=== PATIENT | female | born 1960 | race Caucasian/White ===

== ENCOUNTER 2022-12-20 13:46 | Inpatient (IN) | payer OTHER, SELFPAY ==
--- NOTE | ~2022-12-20 | XR_ITS ---
EXAM: XR foot RT min 3V DATE: 12/20/2022 18:51 HISTORY: foreign body . COMPARISON: None available. FINDINGS: Decreased mineralization. No fracture or dislocation. No lytic or blastic lesion. Degenera tive change in the midfoot and first MTP joint. Severe plantar enthesopathy. No erosion or periosteal change. Forefoot soft tissue swelling. Scattered vascular calcifications. IMPRESSION: No acute osseous finding. Forefoot soft tissue swelling. No radiopaque foreign body. Reviewed, dictated and finalized at location K. IMPRESSION: No acute osseous finding. Forefoot soft tissue swelling. No radiopa que foreign body.
[2022-12-20 14:16] VITALS: BP 105/52; PULSE 85; RESP 16; TEMP 37.5; O2SAT 95
--- NOTE | 2022-12-20 17:32 | ED.GENADULT ---
HPI - General Adult General Chief complaint: Wound/Laceration <Molly Evans PA-C - Last Filed: 12/20/22 20:04> Stated complaint: right foot wound <Molly Evans PA-C - Last Filed: 12/20/22 20:04> Time Seen by Provider: 12/20/22 17:07 <Molly Evans PA-C - Last Filed: 12/20/22 20:04> History of Present Illness HPI narrative: 62-year-old female with a history of diabetes reports for evaluation of erythema, swelling and pain to her right foot x1 day. Patient had pain, swelling and redness to her foot 5 days ago and went to [place] ED. She was found to have a foreign body on x-ray and was admitted for OR removal of foreign body by Dr. Hull ([facility]) 4 days ago and was discharged the same day with doxycycline. Patient states she did not start taking the doxycycline until 3 days ago and then yesterday began to develop redness, swelling and pain again to the right foot. She states she went to Dr. Hull's office today due to worsening symptoms and was told to come to the ED for IV antibiotics and admission. Patient states she did not go to [place] emergency department because she did not like the care there, therefore came to [place]. She states she has been taking her doxycycline twice a day since she filled it 3 days ago. Reports her blood sugars have been well controlled. She does report body aches and chills, but denies fever, nausea, vomiting, diarrhea, abdominal pain, chest pain or shortness of breath. <Molly Evans PA-C - Last Filed: 12/20/22 20:04> Related Data Home medications: Home Medications Medication Instructions Recorded Confirmed albuterol sulfate 90 mcg/actuation 2 puff inhalation Q4H PRN SOB 12/20/22 12/20/22 aerosol inhaler aspirin 81 mg tablet 81 mg PO DAILY 12/20/22 12/20/22 doxycycline hyclate 100 mg tablet 100 mg PO BID 12/20/22 12/20/22 gabapentin 600 mg tablet 600 mg PO TID 12/20/22 12/20/22 hydrochlorothiazide 25 mg tablet 25 mg PO DAILY 12/20/22 12/20/22 insulin glargine 100 unit/mL (3 25 unit subcut BIDWM 12/20/22 12/20/22 mL) subcutaneous pen (Lantus Solostar U-100 Insulin) insulin lispro 100 unit/mL 15 unit subcut TIDWM 12/20/22 12/20/22 subcutaneous pen (Humalog KwikPen (U-100) Insulin) [id number] 2 cap PO TIDWM 12/20/22 12/20/22 15,000-47,000-63,000 unit capsule,delayed rel (Zenpep) lisinopril 10 mg tablet 10 mg PO DAILY 12/20/22 12/20/22 metformin 500 mg tablet 500 mg PO BIDWM 12/20/22 12/20/22 naproxen 500 mg tablet 500 mg PO BID PRN Pain, Moderate 12/20/22 12/20/22 simvastatin 20 mg tablet 20 mg PO HS 12/20/22 12/20/22 tizanidine 4 mg tablet 4 mg PO TID PRN muscle spasms 12/20/22 12/20/22 <Molly Evans PA-C - Last Filed: 12/20/22 20:04> Allergies/adverse reactions: Allergies Allergy/AdvReac Type Severity Reaction Status Date / Time codeine Allergy Mild ITCHING Verified 12/20/22 21:39 Sulfa (Sulfonamide Allergy Mild ITCHING Verified 12/20/22 21:39 Antibiotics) tetracycline Allergy Mild ITCHING Verified 12/20/22 21:39 <VITA Jarvis Last Filed: 12/20/22 20:04> Review of Systems Review of Systems: CONSTITUTIONAL: See HPI EYES: Denies visual changes, redness, or discharge. ENT: Denies rhinorrhea, congestion, sore throat, or otalgia. CARDIOVASCULAR: Denies chest pain, palpitations, or edema. RESPIRATORY: Denies cough or dyspnea. GASTROINTESTINAL: Denies abdominal pain, nausea, vomiting, or diarrhea. GENITOURINARY: Denies dysuria or hematuria. SKIN: See HPI MUSCULOSKELETAL: Denies back pain, joint pain, or myalgia. NEUROLOGIC: Denies headache, numbness, dizziness, or weakness. PSYCHIATRIC: Denies anxiety or depression. <Molly Evans PA-C - Last Filed: 12/20/22 20:04> [facility] Family History Family History: Family History (Updated 12/20/22 @ 21:59 by Stefany Hoover RN) Other Unknown family medical history <Molly Evans PA-C - Last Filed:
[2022-12-20 17:56] LABS: Basophils Absolute Auto 0.1 K/mm3 (0.0-0.1); Basophils Percent Auto 0.4 % (0.2-1.2); Eosinophils Absolute Auto 0.1 K/mm3 (0-0.3); Eosinophils Percent Auto 0.4 % (0-4.4); Immature Granulocyte Absolute 0.04 K/mm3 (0.00-0.031); Immature Granulocyte Percent A 0.3 % (0-0.5); Lymphocytes Absolute Auto 3.51 K/mm3 (0.9-3.2); Lymphocytes Percent Auto 26.3 % (18.3-44.2); Mean Corpuscular HGB Conc 32.4 g/dl (32-36); Mean Corpuscular Hemoglobin 27.2 pg (26-34); Mean Corpuscular Volume 84.2 fl (80-100); Mean Platelet Volume 10.9 fl (7.4-10.4); Monocytes Absolute Auto 0.7 K/mm3 (0.1-0.6); Monocytes Percent Auto 5.5 % (2.6-8.5); Neutrophils Percent Auto 67.1 % (45.5-73.1); Platelet Count Result 320 k/mm3 (150-375); Red Blood Count 4.04 M/mm3 (4.2-5.4); Red Cell Distribution Width 11.9 % (11.5-14.5); White Blood Count 13.4 K/mm3 (4.5-10.0)
[2022-12-20 18:06] LABS: Lactic Acid Reflex 1.5 mmol/L (0.7-2.0)
[2022-12-20 18:09] LABS: Alanine Aminotransferase 22 U/L (6-35); Albumin Level 4.1 g/dL (3.5-5.1); Alkaline Phosphatase 100 U/L (38-126); Anion Gap 7 mmol/L (8-16); Aspartate Amino Transferase 19 U/L (14-36); Bilirubin,Total 0.6 mg/dL (0.2-1.3); Blood Urea Nitrogen 20 mg/dL (7-17); CRP 5.4 mg/dL (<1.0); Calcium 9.3 mg/dL (8.4-10.2); Carbon Dioxide 30 mmol/L (22-30); Chloride 98 mmol/L (98-107); Estimated CRCL calculation 65 ml/min; Estimated Glomerular Filt Rate 56; Glucose 417 mg/dL (65-110); Potassium 4.5 mmol/L (3.4-5.0); Sodium 135 mmol/L (137-145)
[2022-12-20] MEDS: SODIUM CHLORIDE 0.9% IV 1,000 ML 999 ML IV CONT (18:14)
[2022-12-20] MEDS: CEFEPIME 2 GM/NS 50 ML 2 GM/50 ML BAG IVPB (18:15)
[2022-12-20] MEDS: ACETAMINOPHEN 500 MG TABLET 1000 MG PO (18:15)
[2022-12-20 18:23] LABS: Erythrocyte Sedimentation Rate 84 mm/hr (0-20)
[2022-12-20] MEDS: metroNIDAZOLE 500 MG/ISO 100ML 500 MG/100 ML BAG 100 MG IVPB (18:29)
[2022-12-20 18:32] LABS: Influenza A QL RT-PCR Negative (Negative); Influenza B QL RT-PCR Negative (Negative); SARS-CoV-2 RNA PCR Negative (Negative)
[2022-12-20 18:47] LABS: Appearance Urine Cloudy (Clear); Bacteria Urine None Seen /hpf; Bilirubin Urine Negative (Negative); Blood Urine Negative (Negative); Color Urine Yellow (Yellow); Glucose Urine UA 3+ mg/dL (Negative); Ketones Urine Negative (Negative); Leukocyte Esterase Ur Negative LEU/UL (Negative); Need Manual Microscopic Reviewed; Nitrate Urine Negative (Negative); Protein Urine 1+ mg/dL (Negative); RBC Urine 0-2 /hpf (0-2); Specific Grav Ur 1.026 (1.001-1.035); Squamous Epithelial Cell Urine Moderate /hpf (Few); Urobilinogen Urine 0.2 mg/dL (<2.0); WBC Urine 0-5 /hpf; pH Urine 5.5 (5.0-9.0)
[2022-12-20 18:50] LABS: Add Urine Microscopic? YES
[2022-12-20 19:17] VITALS: BP 145/51; PULSE 75; RESP 18; O2SAT 98
--- NOTE | 2022-12-20 20:30 | PM.IMHP ---
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 The patient was in her usual state of health until about a week ago. She presented to the emergency department for evaluation of erythema, swelling and pain to her right foot x1 day.?The patient reports pain, swelling and redness to her foot 5 days ago and went to [place] ED.? She was diagnosis with a foreign body on x-ray and was admitted for OR removal of foreign body performed by Dr. Hull (podiatry) 4 days ago. She was or originally discharged on the same day on a course of PO doxycycline.? unfortunately, the patient did not start taking the doxycycline until 3 days ago; 2 days later she began to develop redness, swelling and pain again to the right foot. Interestingly, the patient was unaware of the presence of the foreign body in her foot, but reports 8/10 pain despite tylenol.? She states she went to Dr. Hull's office today due to worsening symptoms and was told to come to the ED for IV antibiotics and admission.? Patient opted for [facility].? She states she has been taking her doxycycline twice a day since she filled it 3 days ago.? She reports compliance to diabetic diet and her medical regimen. She endorses well controlled fingerstick blood sugars.? She does report body aches and chills, but denies fever, nausea, vomiting, diarrhea, abdominal pain, chest pain or shortness of breath. Review of Systems Constitutional: Constitutional: Reports as per HPI, Reports body ache(s), Reports chills, Reports fatigue, Denies night sweats and Reports weakness Eyes: Eyes: Reports as per HPI and Denies blurry vision ENT: Reports Normal hearing present, Denies dysphagia, Denies epistaxis and Denies nasal congestion Cardiovascular: Cardiovascular: Reports as per HPI, Denies chest pain, Denies leg edema and Denies palpitations Respiratory: Respiratory: Reports as per HPI, Reports no additional respiratory complaints, Denies cough, Denies dyspnea, Denies dyspnea on exertion and Denies wheezing Gastrointestinal: Gastrointestinal: Reports as per HPI Genitourinary: Genitourinary: Reports no additional female genitourinary complaints Musculoskeletal: Musculoskeletal: Reports as per HPI and Reports back pain Integumentary/Breasts: Skin/Breast: Reports system reviewed and no additional complaints, except as docu Comments: redness right foot plantar dry wound; no oozing or drainage. Neurologic: Reports system reviewed and no additional complaints, except as documented, Denies confusion and Denies headache(s) Psychiatric: Psychiatric: Reports no additional psychiatric complaints, Denies anxiety, Denies behavioral changes and Denies depression [facility] Family History Family History (Updated 12/20/22 @ 21:59 by Stefany Hoover RN) Other Unknown family medical history Social History Social History Smoking status: Never smoker Alcohol intake: never Substance use: never Lack of Transportation: YES Lack of Food: Never True Current Housing: I Have Housing Concerned About Future Housing: No Difficulty Paying Gas/Electric Bills: No Difficulty Paying for Meds: No Currently Unemployed: No Education: High School Diploma/GED Difficulty w/ Childcare or Family Care: No Spiritual care concerns: No Meds Home Medications and Allergies Home Medications Medication Instructions Recorded Confirmed Type albuterol sulfate 90 mcg/actuation 2 puff inhalation Q4H PRN SOB 12/20/22 12/20/22 History aerosol inhaler aspirin 81 mg tablet 81 mg PO DAILY 12/20/22 12/20/22 History doxycycline hyclate 100 mg tablet 100 mg PO BID 12/20/22 12/20/22 History gabapentin 600 mg tablet 600
[2022-12-20 20:33] VITALS: BP 158/81; PULSE 74; RESP 18; O2SAT 98
[2022-12-20 20:47] VITALS: BP 153/74; PULSE 79; RESP 18; TEMP 36.1; O2SAT 98; BMI 42.4
[2022-12-20] MEDS: VANCOMYCIN 1,250 MG/NS 250 ML 1,250 MG/250 ML BAG 166.67 MG IVPB ×2 (20:47→22:49)
--- NOTE | 2022-12-20 22:07 | ADMGEN ---
This patient, Shasta Conklin, was admitted to [facility] Surg Room 326-01. Patient/family oriented to hospital policies and general routines including ID bracelet, bed and alarms, visiting hours, pain management, procedures, bathroom and other care routines, personal items, smoking policy, room service/diet, and visiting hours. Information on how to activate the Rapid Response Team has been discussed. Patient/Family are encouraged to report perceived risks to care and to ask questions if they do not understand what they are told or what they should do.
[2022-12-21] MEDS: SIMVASTATIN 20 MG TABLET PO ×2 (00:49→20:21)
[2022-12-21] MEDS: ACETAMINOPHEN 325 MG TABLET 650 MG PO (00:49)
[2022-12-21] MEDS: INSULIN GLARGINE (*BKC) 100 UNITS/ML 25 UNITS SUB-Q ×3 (01:00→16:48)
[2022-12-21 01:12] LABS: Glucose Point of Care 368 mg/dl (65-105)
[2022-12-21] MEDS: metroNIDAZOLE 500 MG/ISO 100ML 500 MG/100 ML BAG 100 MG IVPB ×3 (01:13→18:28)
[2022-12-21] MEDS: MELATONIN 3 MG TABLET PO ×2 (02:18→20:27)
[2022-12-21] MEDS: CEFEPIME 2 GM/NS 50 ML 2 GM/50 ML BAG IVPB ×2 (05:49→17:52)
[2022-12-21 05:53] VITALS: BP 130/57; PULSE 68; RESP 16; TEMP 36.7; O2SAT 97
[2022-12-21 06:27] LABS: Basophils Absolute Auto 0.1 K/mm3 (0.0-0.1); Basophils Percent Auto 0.7 % (0.2-1.2); Eosinophils Absolute Auto 0.2 K/mm3 (0-0.3); Eosinophils Percent Auto 1.6 % (0-4.4); Hemoglobin 9.7 g/dL (12.0-15.0); Immature Granulocyte Absolute 0.05 K/mm3 (0.00-0.031); Immature Granulocyte Percent A 0.5 % (0-0.5); Lymphocytes Absolute Auto 3.07 K/mm3 (0.9-3.2); Lymphocytes Percent Auto 28.5 % (18.3-44.2); Mean Corpuscular HGB Conc 32.3 g/dl (32-36); Mean Corpuscular Volume 83.6 fl (80-100); Mean Platelet Volume 10.4 fl (7.4-10.4); Monocytes Absolute Auto 0.7 K/mm3 (0.1-0.6); Monocytes Percent Auto 6.1 % (2.6-8.5); Neutrophils Absolute Auto 6.7 K/mm3 (1.3-6.7); Neutrophils Percent Auto 62.6 % (45.5-73.1); Platelet Count Result 277 k/mm3 (150-375); Red Blood Count 3.59 M/mm3 (4.2-5.4); Red Cell Distribution Width 11.8 % (11.5-14.5); White Blood Count 10.8 K/mm3 (4.5-10.0)
[2022-12-21 06:42] LABS: Anion Gap 7 mmol/L (8-16); Blood Urea Nitrogen 18 mg/dL (7-17); CRP 4.2 mg/dL (<1.0); Calcium 8.5 mg/dL (8.4-10.2); Carbon Dioxide 26 mmol/L (22-30); Chloride 103 mmol/L (98-107); Estimated CRCL calculation 71 ml/min; Estimated Glomerular Filt Rate > 60; Glucose 319 mg/dL (65-110); Potassium 4.2 mmol/L (3.4-5.0); Sodium 136 mmol/L (137-145)
[2022-12-21 07:49] LABS: Glucose Point of Care 332 mg/dl (65-105)
[2022-12-21 08:37] LABS: Erythrocyte Sedimentation Rate 137 mm/hr (0-20)
[2022-12-21] MEDS: INSULIN ASPART (*BKC) 100 UNITS/ML 15 UNITS SUB-Q ×3 (08:37→16:48)
[2022-12-21] MEDS: INSULIN ASPART (*BKC) 100 UNITS/ML SUB-Q ×2 (08:38→11:59)
[2022-12-21] MEDS: GABAPENTIN 300 MG CAPSULE 600 MG PO ×3 (08:44→16:42)
[2022-12-21] MEDS: metFORMIN HCL 500 MG TABLET PO ×2 (08:44→16:47)
[2022-12-21] MEDS: ASPIRIN 81 MG ENTERIC TABLET PO (08:44)
[2022-12-21] MEDS: hydroCHLOROthiazide 25 MG TABLET PO (08:44)
[2022-12-21] MEDS: TIZANIDINE HCL 4 MG TABLET PO ×2 (08:45→18:32)
[2022-12-21] MEDS: lisinopriL 10 MG TABLET PO (08:45)
--- NOTE | 2022-12-21 09:47 | PHAR ---
HOME MEDICATION VERIFIED BY PHARMACY: ZENPEP (PANCRELIPASE) 15,000 UNITS
[2022-12-21 10:25] VITALS: BMI 42.4
[2022-12-21 11:40] LABS: Glucose Point of Care 201 mg/dl (65-105)
[2022-12-21 14:00] VITALS: BP 119/72; PULSE 74; RESP 16; TEMP 36.4; O2SAT 97
--- NOTE | 2022-12-21 15:02 | PCPTNOTE ---
On 12/21/22, the student, [Isabella Lackey], provided care and completed [facility] documentation on this patient. I have reviewed the student's documentation and agree with the findings.
--- NOTE | 2022-12-21 15:42 | WPDPN ---
Progress Note: A&P Assessment and Plan (1) Cellulitis: Code(s): L03.90 - Cellulitis, unspecified Status: Acute Assessment and Plan: This is a 62-year-old diabetic lady presenting with a clinical diagnosis of cellulitis after undergoing a for any body removal from her plantar right foot. A foot x-ray did not reveal any acute osseous finding. Forefoot soft tissue swelling. No radiopaque foreign body. there was no evidence of osseous erosion, periosteal reaction, fracture, joint effusion, fluid collection or subcutaneous air. While the patient was in the emergency department, additional history was obtained. The patient did not take her medication on the daily were prescribed. She reports bilateral foot numbness but and/or severe, 03/02. She reported compliance to a diabetic diet an reported recent will control blood sugar levels. The patient was never aware of the presence of the foreign body in her foot. She reports taking good care of herself regularly, attending her [facility]-woman physician examination. In the emergency department her blood sugar was elevated at 417. ESR and CRP were both elevated. WBC count was elevated at 13.4. IV fluids, cefepime, vancomycin, and Flagyl were administered and the patient was admitted to the hospital. Consultation were ordered from the podiatry, Wound Care service. 12/21/2022 interval history: Patient is morbidly obese with history of uncontrolled diabetes initially patient was seen at [facility] as patient had a foreign body in her right foot patient was removed and treated and discharged however patient continued to redness swelling and painful presented emergency department further evaluation patient is found to have cellulitis started the patient on Cefepime, Flagyl and vancomycin, and blood cultures are drawn, will continue to monitor and further recommendation to follow. (2) Uncontrolled diabetes mellitus: Status: Acute (3) Sedentary lifestyle: Code(s): Z91.89 - Other specified personal risk factors, not elsewhere classified Status: Acute Assessment and Plan: The patient home regimen is unknown. She will be managed with a combination of short and long-acting insulin while monitoring her Accu-Cheks closely. Will follow up HbA1c and obtain her list of home medication in the morning. 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 (5) Full code status: Code(s): Z78.9 - Other specified health status Status: Acute Assessment and Plan: The patient will be a full code per her wishes. Plan Patient reports a sedentary lifestyle. She has a history of chronic back pain and had surgeries in the past. She would like to start a an exercise program under supervision. Physical therapy will be consulted for a thoracentesis min. Subjective Date/time seen: 12/21/22 15:42 Interval history: Chief Complaint: Right foot swelling HPI-Narrative: This is a 62-year-old lady with a past medical? 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 The patient? was in her usual state of health until about a week ago.? She presented to the emergency department? for evaluation of erythema, swelling and pain to her right foot x1 day.?The patient reports pain, swelling and redness to her foot 5 days ago and went to [place] ED.? She was? diagnosis with a foreign body on x-ray and was admitted for OR removal of foreign body? performed by Dr. Hull (podiatry) 4 days ago.? She was? or originally discharged on the same day on a course of PO doxycycline.?? unfortunately, the patient did not start taking the doxycycline until 3 days ago; ? 2 days later she began to develop redness, swelling and pain again to the right foot. ? Interestingly, the patien
[2022-12-21 16:32] LABS: Glucose Point of Care 151 mg/dl (65-105)
[2022-12-21 20:29] LABS: Glucose Point of Care 145 mg/dl (65-105)
[2022-12-21 20:52] VITALS: BP 134/51; PULSE 77; RESP 18; TEMP 36.4; O2SAT 95
[2022-12-21] MEDS: HYDROcodone/acetaminophen (*CRX) 5-325 MG TABLET 1 TAB PO (22:19)
[2022-12-22] MEDS: metroNIDAZOLE 500 MG/ISO 100ML 500 MG/100 ML BAG 100 MG IVPB ×3 (02:18→17:42)
[2022-12-22] MEDS: CEFEPIME 2 GM/NS 50 ML 2 GM/50 ML BAG IVPB ×2 (05:58→17:10)
[2022-12-22 06:00] VITALS: BP 140/65; PULSE 74; RESP 16; TEMP 35.7; O2SAT 96
--- NOTE | 2022-12-22 06:54 | P.CDI_ITS ---
CDI Query Clarification Request Please clarify if there is a cause and effect relationship between cellulitis and diabetes mellitus. * Cellulitis is related to diabetes mellitus * Cellulitis is not related to diabetes mellitus * Unknown if cellulitis is related to diabetes mellitus. <Lamar Pryor RN - Last Filed: 12/22/22 06:57> Provider Comments Unknown if cellulitis is related to diabetes mellitus. <Luther Mendoza MD - Last Filed: 12/22/22 12:59>
--- NOTE | 2022-12-22 06:54 | WPDCDIQUERY2 ---
CDI Query Clarification Request Please clarify if there is a cause and effect relationship between cellulitis and diabetes mellitus. Cellulitis is related to diabetes mellitus Cellulitis is not related to diabetes mellitus Unknown if cellulitis is related to diabetes mellitus. <Lamar Pryor RN - Last Filed: 12/22/22 06:57> Provider Comments Unknown if cellulitis is related to diabetes mellitus. <Luther Mendoza MD - Last Filed: 12/22/22 12:59>
[2022-12-22 08:00] LABS: Glucose Point of Care 165 mg/dl (65-105)
[2022-12-22 08:09] LABS: Basophils Absolute Auto 0.1 K/mm3 (0.0-0.1); Basophils Percent Auto 0.7 % (0.2-1.2); Eosinophils Absolute Auto 0.2 K/mm3 (0-0.3); Hematocrit 33.9 % (37.0-47.0); Hemoglobin 10.9 g/dL (12.0-15.0); Immature Granulocyte Absolute 0.03 K/mm3 (0.00-0.031); Immature Granulocyte Percent A 0.2 % (0-0.5); Lymphocytes Absolute Auto 4.02 K/mm3 (0.9-3.2); Lymphocytes Percent Auto 33.5 % (18.3-44.2); Mean Corpuscular HGB Conc 32.2 g/dl (32-36); Mean Corpuscular Hemoglobin 27.5 pg (26-34); Mean Corpuscular Volume 85.4 fl (80-100); Monocytes Absolute Auto 0.7 K/mm3 (0.1-0.6); Neutrophils Absolute Auto 6.9 K/mm3 (1.3-6.7); Neutrophils Percent Auto 57.6 % (45.5-73.1); Platelet Count Result 316 k/mm3 (150-375); Red Blood Count 3.97 M/mm3 (4.2-5.4); Red Cell Distribution Width 11.9 % (11.5-14.5)
[2022-12-22 08:24] LABS: CRP 3.3 mg/dL (<1.0)
[2022-12-22] MEDS: ASPIRIN 81 MG ENTERIC TABLET PO (08:34)
[2022-12-22] MEDS: metFORMIN HCL 500 MG TABLET PO ×2 (08:34→17:03)
[2022-12-22] MEDS: GABAPENTIN 300 MG CAPSULE 600 MG PO ×3 (08:34→17:03)
[2022-12-22] MEDS: hydroCHLOROthiazide 25 MG TABLET PO (08:34)
[2022-12-22] MEDS: lisinopriL 10 MG TABLET PO (08:34)
[2022-12-22] MEDS: TIZANIDINE HCL 4 MG TABLET PO ×2 (08:34→21:23)
[2022-12-22] MEDS: INSULIN GLARGINE (*BKC) 100 UNITS/ML 25 UNITS SUB-Q ×2 (08:36→17:04)
[2022-12-22] MEDS: INSULIN ASPART (*BKC) 100 UNITS/ML 15 UNITS SUB-Q ×3 (08:39→17:00)
[2022-12-22 08:44] LABS: Vancomycin Trough 14.9 ug/mL (10.0-20.0)
[2022-12-22 09:00] LABS: Erythrocyte Sedimentation Rate 89 mm/hr (0-20)
[2022-12-22 09:20] VITALS: O2SAT 96
[2022-12-22 11:45] LABS: Glucose Point of Care 203 mg/dl (65-105)
[2022-12-22] MEDS: INSULIN ASPART (*BKC) 100 UNITS/ML SUB-Q (11:52)
--- NOTE | 2022-12-22 12:54 | PM.IMPN ---
Progress Note: A&P Assessment and Plan (1) Cellulitis: Code(s): L03.90 - Cellulitis, unspecified Status: Acute Assessment and Plan: This is a 62-year-old diabetic lady presenting with a clinical diagnosis of cellulitis after undergoing a for any body removal from her plantar right foot. A foot x-ray did not reveal any acute osseous finding. Forefoot soft tissue swelling. No radiopaque foreign body. there was no evidence of osseous erosion, periosteal reaction, fracture, joint effusion, fluid collection or subcutaneous air. While the patient was in the emergency department, additional history was obtained. The patient did not take her medication on the daily were prescribed. She reports bilateral foot numbness but and/or severe, 03/02. She reported compliance to a diabetic diet an reported recent will control blood sugar levels. The patient was never aware of the presence of the foreign body in her foot. She reports taking good care of herself regularly, attending her [facility]-woman physician examination. In the emergency department her blood sugar was elevated at 417. ESR and CRP were both elevated. WBC count was elevated at 13.4. IV fluids, cefepime, vancomycin, and Flagyl were administered and the patient was admitted to the hospital. Consultation were ordered from the podiatry, Wound Care service. 12/21/2022 interval history: Patient is morbidly obese with history of uncontrolled diabetes initially patient was seen at [facility] as patient had a foreign body in her right foot patient was removed and treated and discharged however patient continued to redness swelling and painful presented emergency department further evaluation patient is found to have cellulitis started the patient on Cefepime, Flagyl and vancomycin, and blood cultures are drawn, will continue to monitor and further recommendation to follow. 12/22/2022: Right foot cellulitis treated with vancomycin cefepime and Flagyl. Cultures negative remains afebrile vital stable. Continue IV antibiotics as ordered (2) Uncontrolled diabetes mellitus: Status: Acute (3) Sedentary lifestyle: Code(s): Z91.89 - Other specified personal risk factors, not elsewhere classified Status: Acute Assessment and Plan: The patient home regimen is unknown. She will be managed with a combination of short and long-acting insulin while monitoring her Accu-Cheks closely. 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 Subjective Date/time seen: 12/22/22 12:54 Interval history: Chief Complaint: Right foot swelling HPI-Narrative: This is a 62-year-old lady with a past medical? 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 The patient? was in her usual state of health until about a week ago.? She presented to the emergency department? for evaluation of erythema, swelling and pain to her right foot x1 day.?The patient reports pain, swelling and redness to her foot 5 days ago and went to [place] ED.? She was? diagnosis with a foreign body on x-ray and was admitted for OR removal of foreign body? performed by Dr. Hull (podiatry) 4 days ago.? She was? or originally discharged on the same day on a course of PO doxycycline.?? unfortunately, the patient did not start taking the doxycycline until 3 days ago; ? 2 days later she began to develop redness, swelling and pain again to the right foot. ? Interestingly, the patient? was unaware of the presence of the foreign body in her foot, but reports 8/10 pain despite tylenol.? She states she went to Dr. Hull's office today due to worsen
[2022-12-22 14:00] VITALS: BP 128/78; PULSE 75; RESP 16; TEMP 36.4; O2SAT 98
[2022-12-22 16:56] LABS: Glucose Point of Care 120 mg/dl (65-105)
[2022-12-22 21:02] LABS: Glucose Point of Care 140 mg/dl (65-105)
[2022-12-22] MEDS: MELATONIN 3 MG TABLET PO (21:23)
[2022-12-22] MEDS: SIMVASTATIN 20 MG TABLET PO (21:23)
[2022-12-22 22:00] VITALS: BP 148/55; PULSE 88; RESP 18; TEMP 36.5; O2SAT 98
[2022-12-22 22:40] VITALS: O2SAT 98
[2022-12-23] MEDS: metroNIDAZOLE 500 MG/ISO 100ML 500 MG/100 ML BAG 100 MG IVPB ×3 (02:12→17:55)
[2022-12-23] MEDS: CEFEPIME 2 GM/NS 50 ML 2 GM/50 ML BAG IVPB ×2 (04:49→16:57)
[2022-12-23 06:00] VITALS: BP 128/58; PULSE 77; RESP 16; TEMP 36.2; O2SAT 96
[2022-12-23 06:44] LABS: Basophils Absolute Auto 0.1 K/mm3 (0.0-0.1); Basophils Percent Auto 0.6 % (0.2-1.2); Eosinophils Absolute Auto 0.2 K/mm3 (0-0.3); Eosinophils Percent Auto 1.8 % (0-4.4); Hematocrit 30.8 % (37.0-47.0); Hemoglobin 9.7 g/dL (12.0-15.0); Immature Granulocyte Absolute 0.07 K/mm3 (0.00-0.031); Immature Granulocyte Percent A 0.5 % (0-0.5); Lymphocytes Absolute Auto 3.74 K/mm3 (0.9-3.2); Lymphocytes Percent Auto 28.3 % (18.3-44.2); Mean Corpuscular HGB Conc 31.5 g/dl (32-36); Mean Corpuscular Hemoglobin 26.7 pg (26-34); Mean Corpuscular Volume 84.8 fl (80-100); Mean Platelet Volume 10.5 fl (7.4-10.4); Monocytes Absolute Auto 0.9 K/mm3 (0.1-0.6); Monocytes Percent Auto 6.8 % (2.6-8.5); Neutrophils Absolute Auto 8.2 K/mm3 (1.3-6.7); Platelet Count Result 291 k/mm3 (150-375); Red Blood Count 3.63 M/mm3 (4.2-5.4); White Blood Count 13.2 K/mm3 (4.5-10.0)
[2022-12-23 06:52] LABS: Anion Gap 6 mmol/L (8-16); Blood Urea Nitrogen 21 mg/dL (7-17); Calcium 8.6 mg/dL (8.4-10.2); Carbon Dioxide 26 mmol/L (22-30); Chloride 103 mmol/L (98-107); Estimated CRCL calculation 65 ml/min; Estimated Glomerular Filt Rate 56; Glucose 228 mg/dL (65-110); Potassium 4.2 mmol/L (3.4-5.0); Sodium 135 mmol/L (137-145)
[2022-12-23 08:05] LABS: Glucose Point of Care 226 mg/dl (65-105)
[2022-12-23] MEDS: TIZANIDINE HCL 4 MG TABLET PO (08:20)
[2022-12-23] MEDS: ENOXAPARIN 40 MG/0.4 ML SYRINGE SUB-Q (08:20)
[2022-12-23] MEDS: metFORMIN HCL 500 MG TABLET PO ×2 (08:20→16:59)
[2022-12-23] MEDS: ASPIRIN 81 MG ENTERIC TABLET PO (08:20)
[2022-12-23] MEDS: hydroCHLOROthiazide 25 MG TABLET PO (08:20)
[2022-12-23] MEDS: GABAPENTIN 300 MG CAPSULE 600 MG PO ×3 (08:20→16:57)
[2022-12-23] MEDS: lisinopriL 10 MG TABLET PO (08:20)
[2022-12-23] MEDS: INSULIN ASPART (*BKC) 100 UNITS/ML SUB-Q (08:21)
[2022-12-23] MEDS: INSULIN ASPART (*BKC) 100 UNITS/ML 15 UNITS SUB-Q ×3 (08:21→16:58)
[2022-12-23] MEDS: INSULIN GLARGINE (*BKC) 100 UNITS/ML 25 UNITS SUB-Q ×2 (08:22→16:58)
[2022-12-23 09:11] LABS: Erythrocyte Sedimentation Rate 114 mm/hr (0-20)
--- NOTE | 2022-12-23 11:12 | PM.IMPN ---
Progress Note: A&P Assessment and Plan (1) Cellulitis: Code(s): L03.90 - Cellulitis, unspecified Status: Acute Assessment and Plan: This is a 62-year-old diabetic lady presenting with a clinical diagnosis of cellulitis after undergoing a for any body removal from her plantar right foot. A foot x-ray did not reveal any acute osseous finding. Forefoot soft tissue swelling. No radiopaque foreign body. there was no evidence of osseous erosion, periosteal reaction, fracture, joint effusion, fluid collection or subcutaneous air. While the patient was in the emergency department, additional history was obtained. The patient did not take her medication on the daily were prescribed. She reports bilateral foot numbness but and/or severe, 8/. She reported compliance to a diabetic diet an reported recent will control blood sugar levels. The patient was never aware of the presence of the foreign body in her foot. She reports taking good care of herself regularly, attending her [facility]-woman physician examination. In the emergency department her blood sugar was elevated at 417. ESR and CRP were both elevated. WBC count was elevated at 13.4. IV fluids, cefepime, vancomycin, and Flagyl were administered and the patient was admitted to the hospital. Consultation were ordered from the podiatry, Wound Care service. 12/21/2022 interval history: Patient is morbidly obese with history of uncontrolled diabetes initially patient was seen at [facility] as patient had a foreign body in her right foot patient was removed and treated and discharged however patient continued to redness swelling and painful presented emergency department further evaluation patient is found to have cellulitis started the patient on Cefepime, Flagyl and vancomycin, and blood cultures are drawn, will continue to monitor and further recommendation to follow. 12/22/2022: Right foot cellulitis treated with vancomycin cefepime and Flagyl. Cultures negative remains afebrile vital stable. Continue IV antibiotics as ordered 12/23/2022: Right foot cellulitis failed outpatient treatment recent removal of foreign body from the sole. Cultures negative remains afebrile. Will plan to switch antibiotics to peel and discharged in a.m. (2) Uncontrolled diabetes mellitus: Status: Acute (3) Sedentary lifestyle: Code(s): Z91.89 - Other specified personal risk factors, not elsewhere classified Status: Acute Assessment and Plan: The patient home regimen is unknown. She will be managed with a combination of short and long-acting insulin while monitoring her Accu-Cheks closely. 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 Subjective Date/time seen: 12/23/22 11:12 Interval history: Chief Complaint: Right foot swelling HPI-Narrative: This is a 62-year-old lady with a past medical? 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 The patient? was in her usual state of health until about a week ago.? She presented to the emergency department? for evaluation of erythema, swelling and pain to her right foot x1 day.?The patient reports pain, swelling and redness to her foot 5 days ago and went to [place] ED.? She was? diagnosis with a foreign body on x-ray and was admitted for OR removal of foreign body? performed by Dr. Hull (podiatry) 4 days ago.? She was? or originally discharged on the same day on a course of PO doxycycline.?? unfortunately, the patient did not start taking the doxycycline until 3 days ago; ? 2 days later she began to develop redness, swelling and pain again to
[2022-12-23 11:37] LABS: Glucose Point of Care 172 mg/dl (65-105)
[2022-12-23 14:00] VITALS: BP 152/53; PULSE 81; RESP 20; TEMP 36.4; O2SAT 98
[2022-12-23 16:32] LABS: Glucose Point of Care 106 mg/dl (65-105)
[2022-12-23 21:19] LABS: Glucose Point of Care 171 mg/dl (65-105)
[2022-12-23] MEDS: SIMVASTATIN 20 MG TABLET PO (21:39)
[2022-12-23 21:48] VITALS: BP 98/75; PULSE 91; RESP 22; TEMP 36.6; O2SAT 95
[2022-12-24] MEDS: metroNIDAZOLE 500 MG/ISO 100ML 500 MG/100 ML BAG 100 MG IVPB ×2 (03:18→10:00)
[2022-12-24] MEDS: CEFEPIME 2 GM/NS 50 ML 2 GM/50 ML BAG IVPB (04:33)
[2022-12-24 06:00] VITALS: BP 113/58; PULSE 86; RESP 20; TEMP 36.4; O2SAT 96
[2022-12-24 06:37] LABS: Basophils Absolute Auto 0.1 K/mm3 (0.0-0.1); Basophils Percent Auto 0.7 % (0.2-1.2); Eosinophils Absolute Auto 0.2 K/mm3 (0-0.3); Eosinophils Percent Auto 1.4 % (0-4.4); Hematocrit 33.1 % (37.0-47.0); Hemoglobin 10.2 g/dL (12.0-15.0); Immature Granulocyte Absolute 0.06 K/mm3 (0.00-0.031); Immature Granulocyte Percent A 0.5 % (0-0.5); Lymphocytes Absolute Auto 3.68 K/mm3 (0.9-3.2); Mean Corpuscular HGB Conc 30.8 g/dl (32-36); Mean Corpuscular Hemoglobin 27.3 pg (26-34); Mean Corpuscular Volume 88.5 fl (80-100); Mean Platelet Volume 11.4 fl (7.4-10.4); Monocytes Absolute Auto 0.9 K/mm3 (0.1-0.6); Monocytes Percent Auto 6.6 % (2.6-8.5); Neutrophils Absolute Auto 8.3 K/mm3 (1.3-6.7); Neutrophils Percent Auto 62.8 % (45.5-73.1); Platelet Count Result 238 k/mm3 (150-375); Red Blood Count 3.74 M/mm3 (4.2-5.4); Red Cell Distribution Width 12.1 % (11.5-14.5); White Blood Count 13.1 K/mm3 (4.5-10.0)
[2022-12-24 07:38] LABS: Glucose Point of Care 167 mg/dl (65-105)
[2022-12-24 07:58] LABS: CRP 1.9 mg/dL (<1.0)
[2022-12-24] MEDS: INSULIN ASPART (*BKC) 100 UNITS/ML 15 UNITS SUB-Q ×2 (08:10→11:38)
[2022-12-24] MEDS: INSULIN GLARGINE (*BKC) 100 UNITS/ML 25 UNITS SUB-Q (08:11)
[2022-12-24] MEDS: ENOXAPARIN 40 MG/0.4 ML SYRINGE SUB-Q (08:15)
[2022-12-24] MEDS: ASPIRIN 81 MG ENTERIC TABLET PO (08:15)
[2022-12-24] MEDS: hydroCHLOROthiazide 25 MG TABLET PO (08:16)
[2022-12-24] MEDS: lisinopriL 10 MG TABLET PO (08:16)
[2022-12-24] MEDS: GABAPENTIN 300 MG CAPSULE 600 MG PO ×2 (08:16→12:42)
[2022-12-24] MEDS: metFORMIN HCL 500 MG TABLET PO (08:16)
[2022-12-24 10:16] LABS: Erythrocyte Sedimentation Rate 131 mm/hr (0-20)
[2022-12-24 11:39] LABS: Glucose Point of Care 158 mg/dl (65-105)
--- NOTE | 2022-12-24 12:23 | PM.DS ---
DS: Admitting Diagnosis Discharge Date 12/24/2022 Admitting Diagnosis Right foot swelling and pain DS: Discharge Diagnosis Discharge Diagnosis (1) Cellulitis: Code(s): L03.90 - Cellulitis, unspecified Status: Acute (2) Uncontrolled diabetes mellitus: Status: Acute (3) Sedentary lifestyle: Code(s): Z91.89 - Other specified personal risk factors, not elsewhere classified Status: Acute (4) On deep vein thrombosis (DVT) prophylaxis: Code(s): Z79.899 - Other technician terminal and repeater (current) drug therapy Status: Acute (5) Full code status: Code(s): Z78.9 - Other specified health status Status: Acute DS: Summary Hospital Course Hospital Course: This is a 62-year-old diabetic lady presenting with a clinical diagnosis of cellulitis after undergoing a for any body removal from her plantar right foot.? A foot x-ray did not reveal any acute osseous finding. Forefoot soft tissue swelling. No radiopaque foreign body. there was no evidence of osseous erosion, periosteal reaction, fracture, joint effusion, fluid collection or subcutaneous air.? While the patient was in the emergency department, additional history was obtained.? The patient did not take her medication on the daily were prescribed.? She reports bilateral foot numbness but and/or severe, 8/10.? She reported compliance to a diabetic diet an reported recent will control blood sugar levels.? The patient was never aware of the presence of the foreign body in her foot.? She reports taking good care of herself regularly, attending her [facility]woman physician examination. ? In the emergency department her blood sugar was elevated at 417.? ESR and CRP were both elevated.? WBC count was elevated at 13.4.? IV fluids, cefepime, vancomycin, and Flagyl were administered and the patient was admitted to the hospital.? Patient was treated with IV vancomycin cefepime and Flagyl with improvement in the cellulitic change. A white cell count continue to improve along with improvement and CRP. X-ray was negative for any foreign body. Or any signs of osteomyelitis. She will be switched to Bactrim and Flagyl at discharge for 10 more days. She is advised to follow-up with her auto service representative as outpatient basis. Time Spent with Patient Time attestation: Total time spent providing and/or coordinating discharge services: Exam Narrative: Morbidly obese Patient is comfortable, NAD HEENT: eyes are clear and none icteric LUNGS: Normal respiratory effort ABD: Distended Lower extremities: no edema MS; right fore-foot plantar wound dressing and dorsal aspect erythema which is Still persistent mildly warm to touch but improved initial SKIN: nonjaundiced Neuro: grossly intact. DS: Data Data Completed and Pending Labs on day of discharge: Labs from last 24 hours 12/24/22 12/24/22 12/24/22 11:34 09:38 07:35 WBC RBC Hgb Hct MCV MCH MCHC RDW Plt Count MPV Immature Gran % (Auto) Neut % (Auto) Lymph % (Auto) Isabella % (Auto) Eos % (Auto) Baso % (Auto) Lymph # (Auto) Isabella # (Auto) Eos # (Auto) Baso # (Auto) Abs Immat Gran (auto) Absolute Neuts (auto) Absolute Nucleated RBC Nucleated RBC % ESR 131 H POC Capillary Glucose 158 H 167 H C-Reactive Protein 12/24/22 12/23/22 12/23/22 06:01 21:09 16:29 WBC 13.1 H RBC 3.74 L Hgb 10.2 L Hct 33.1 L MCV 88.5 MCH 27.3 MCHC 30.8 L RDW 12.1 Plt Count 238 MPV 11.4 H Immature Gran % (Auto) 0.5 Neut % (Auto) 62.8 Lymph % (Auto) 28.0 Isabella % (Auto) 6.6 Eos % (Auto) 1.4 Baso % (Auto) 0.7 Lymph # (Auto) 3.68 H Isabella # (Auto) 0.9 H Eos # (Auto) 0.2 Baso # (Auto) 0.1 Abs Immat Gran (auto) 0.06 H Absolute Neuts (auto) 8.3 H Absolute Nucleated RBC 0.0 Nucleated RBC % 0.0 ESR Cancelled POC Capillary Glucose 171 H 106 H C-Reactive Protein 1.9 H
[2022-12-24 13:49] VITALS: BP 138/70; PULSE 88; RESP 20; TEMP 36.4; O2SAT 96
== END 2022-12-24 13:45 | disposition home or self-care (01) | DRG 383 ==
LOC: ANHED 19:58 → ANH3MEDSUR 20:48
PROVIDERS: Admitting Provider Internal Medicine; Emergency Provider Physician Assistant; Visit Provider Internal Medicine
DX: L03.115 Cellulitis of right lower limb (principal); E66.01 Morbid (severe) obesity due to excess calories; Z68.41 Body mass index [BMI] 40.0-44.9, adult; E11.9 Type 2 diabetes mellitus without complications; Z88.2 Allergy status to sulfonamides; Z88.5 Allergy status to narcotic agent; Z79.82 Long term (current) use of aspirin; Z79.84 Long term (current) use of oral hypoglycemic drugs; Z79.4 Long term (current) use of insulin; Z20.822 Contact with and (suspected) exposure to COVID-19; Z79.899 Other long term (current) drug therapy
CPT/HCPCS: 36415; 73630; 80048; 80053; 80202; 81001; 82948; 83605; 85025; 85652; 86140; 87040; 87636; 96365; 96366; 96367; 96368; 96376; 97161; 99285; A9270; G0378; G0379; J0692; J1650; J1815; J3370; J7030

== ENCOUNTER 2023-01-04 17:34 | Observation (INO) | payer OTHER, SELFPAY ==
--- NOTE | ~2023-01-04 | US_ITS ---
US renal BI 01/05/2023 10:05 Procedure: Realtime transabdominal ultrasound of the kidneys and bladder. Indication: Acute renal insufficiency Comparison: No prior studies for comparison. Findings: Renal echotexture is normal bilaterally without hydronephrosis, contour deforming mass or r enal calculus. The right kidney measures 12 cm and left kidney measures 10.2 cm. Bladder within norm al limits. Impression: 1: Unremarkable renal ultrasound. No stones, masses or hydronephrosis. Reviewed, dictated and finalized at location L. Impression: 1: Unremarkable renal ultrasound. No stones, masses or hydronephrosis.
--- NOTE | ~2023-01-04 | XR_ITS ---
EXAM: XR foot RT 2V DATE: 01/06/2023 22:01 HISTORY: glass in foot / pain . COMPARISON: None available. FINDINGS: Normal mineralization. No fracture or dislocation. No lytic or blastic lesion. Moderate de generative change at the first MTP joint and multiple midfoot joints. Mild Achilles and marked planta r enthesopathy Spaces are maintained. No erosion or periosteal change. Significant forefoot soft tiss ue swelling. Vascular calcifications. IMPRESSION: No acute osseous finding in the right foot. Significant forefoot soft tissue swelling. No radiopaque foreign body. Reviewed, dictated and finalized at location K. IMPRESSION: No acute osseous finding in the right foot. Significant forefoot so ft tissue swelling. No radiopaque foreign body.
--- NOTE | ~2023-01-04 | XR_ITS ---
Portable chest x-ray Comparison: 09/22/2006 Clinical History: Cough Findings: Lungs are clear, without focal consolidation or pleural effusion. Cardiomediastinal silho uette is stable. Bones and soft tissues are unremarkable. Impression: Normal chest. Reviewed, dictated and finalized at location . Impression: Normal chest.
--- NOTE | 2023-01-04 20:20 | ECG_ITS ---
Measurements Intervals [place] Rate: P: HI: QRS: QRSD: T: QT: QTc: Interpretive Statements SINUS RHYTHM NO PRIOR ECG AVAILABLE FOR COMPARISON Electronically Signed On 01-05-2023 13:46:59 CDT by Bibiana Daniels M.D.
[2023-01-04 20:29] LABS: Glucose Point of Care 218 mg/dl (65-105)
--- NOTE | 2023-01-04 20:29 | ED.RECABL ---
HPI - Recheck/Abnormal Lab/Rx General Chief Complaint: Recheck/Abnormal Lab/Rx Time Seen by Provider: 01/04/23 20:20 History of Present Illness HPI narrative: Patient is a 62-year-old female with a history of diabetes presenting for lab recheck. Patient states that she was recently discharged after being admitted to the hospital for cellulitis. States that she had outpatient blood work and was told that her potassium was too high. States that she was advised to come to the ER. Patient complains of general malaise but she denies headaches, fevers, chest pain, shortness of breath, cough, vomiting, diarrhea, leg swelling. States that the redness and pain in her right foot has significantly improved. Related Data Home Medications Medication Instructions Recorded Confirmed albuterol sulfate 90 mcg/actuation 2 puff inhalation Q4H PRN SOB 12/20/22 01/04/23 aerosol inhaler aspirin 81 mg tablet 81 mg PO DAILY 12/20/22 01/04/23 gabapentin 600 mg tablet 600 mg PO TID 12/20/22 01/04/23 insulin glargine 100 unit/mL (3 25 unit subcut BIDWM 12/20/22 01/04/23 mL) subcutaneous pen (Lantus Solostar U-100 Insulin) insulin lispro 100 unit/mL 15 unit subcut TIDWM 12/20/22 01/04/23 subcutaneous pen (Humalog KwikPen (U-100) Insulin) zwrmbi-jjvwblth-cwuhhmh 2 cap PO TIDWM 12/20/22 01/04/23 15,000-47,000-63,000 unit capsule,delayed rel (Zenpep) metformin 500 mg tablet 500 mg PO BIDWM 12/20/22 01/04/23 simvastatin 20 mg tablet 20 mg PO HS 12/20/22 01/04/23 tizanidine 4 mg tablet 4 mg PO TID PRN muscle spasms 12/20/22 01/04/23 Allergies Allergy/AdvReac Type Severity Reaction Status Date / Time codeine Allergy Mild ITCHING Verified 12/20/22 21:39 Sulfa (Sulfonamide Allergy Mild ITCHING Verified 12/20/22 21:39 Antibiotics) tetracycline Allergy Mild ITCHING Verified 12/20/22 21:39 Review of Systems Review of Systems: All systems reviewed & are unremarkable except as noted in HPI and below PMFSH Family History Family History Other Unknown family medical history Social History Social History Smoking status: Never smoker Alcohol intake: never Substance use: never Lack of Transportation: No Lack of Food: Never True Current Housing: I Have Housing Concerned About Future Housing: No Difficulty Paying Gas/Electric Bills: No Difficulty Paying for Meds: No Currently Unemployed: No Education: High School Diploma/GED Difficulty w/ Childcare or Family Care: No Spiritual care concerns: No Exam Narrative: GENERAL: Well-appearing, well-nourished, and in no acute distress. HEAD: Normocephalic, atraumatic. EYES: PERRLA and EOMI. ENT: Nares clear, no rhinorrhea or epistaxis. Mucous membranes moist. NECK: Supple. CHEST: Clear to auscultation. No respiratory distress. HEART: Regular rate and rhythm ABDOMEN: Soft, nontender, nondistended EXTREMITIES: Normal range of motion. No edema. SKIN: Warm, dry, no rash. R foot w/o erythema or tenderness; mild dorsal edema NEURO: No focal deficits. Alert and oriented x3. PSYCH: Normal mood and affect. Course Vital Signs Vital signs: Vital Signs Pulse Rate 82 01/04/23 22:37 Respiratory Rate 20 01/04/23 22:37 Blood Pressure 147/72 H 01/04/23 22:37 Pulse Oximetry 98 01/04/23 22:37 Temperature 96 F L 01/07/23 06:06 Pulse Rate 72 01/07/23 06:06 Respiratory Rate 20 01/07/23 06:06 Blood Pressure 129/51 L 01/07/23 06:06 Pulse Oximetry 98 01/07/23 06:06 Oxygen Delivery Room Air 01/07/23 09:00 MDM - Recheck/Abnormal Lab/Rx MDM Narrative Medical decision making narrative: Patient is a 62-year-old female presenting for evaluation of abnormal outpatient labs. Patient states that her potassium earlier today was greater than 6 so she was advised to come in for evaluation. States that other than general mal
[2023-01-04] MEDS: SODIUM CHLORIDE 0.9% IV 1,000 ML 999 ML IV CONT (20:40)
[2023-01-04 20:58] LABS: Prothrombin Time 13.4 Seconds (11.1-14.7)
[2023-01-04 20:59] LABS: Partial Thromboplastin Time 32.3 SECONDS (22.3-36.8)
--- NOTE | 2023-01-04 22:12 | PM.IMHP ---
H&P: HPI History of Present Illness Date/Time: 01/04/23 22:12 Chief Complaint: Abnormal lab value Narrative: This is a 62-year-old female with past medical history significant for hypertension, insulin-dependent diabetes mellitus, dyslipidemia, morbid obesity, recent admission and discharge for cellulitis of the right lower extremity. Patient presents to the emergency room today after recheck lab work showed a potassium of 6.7 at primary care physician's office, repeat in emergency room was 6.1, and sec on potassium emergency room was 5.8, an EKG showed no changes. Patient denies any chest discomfort however states that she has not been feeling quite right, patient denies any nausea, vomiting, diarrhea, abdominal pain, palpitations, body aches and pains. Preliminary workup was significant for a creatinine of 1.9, BUN 24, a chest x-ray was reported as: Portable chest x-ray Comparison: 09/22/2006 Clinical History: Cough Findings:? Lungs are clear, without focal consolidation or pleural effusion.? Cardiomediastinal silhouette is stable. Bones and soft tissues are unremarkable. ? Impression: ? Normal chest. Patient has been admitted for further evaluation management and treatment. Review of Systems Review of Systems: Abnormal lab value Constitutional: Constitutional: Denies chills, Denies fatigue, Denies fever(s), Denies malaise, Denies night sweats, Denies poor appetite, Denies weakness and Denies weight loss Eyes: Eyes: Denies change in vision ENT: Denies dysphagia, Denies vertigo, Denies dizziness and Denies odynophagia Cardiovascular: Cardiovascular: Denies chest pain, Denies lightheadedness, Denies radiating jaw, neck or arm pain and Denies palpitations Respiratory: Respiratory: Denies cough and Denies excessive phlegm production Gastrointestinal: Gastrointestinal: Denies abdominal pain, Denies dyspepsia, Denies heartburn, Denies diarrhea, Denies nausea and Denies vomiting Genitourinary: Genitourinary: Denies dysuria Musculoskeletal: Musculoskeletal: Denies limited range of motion Integumentary/Breasts: Skin/Breast: Denies rash Neurologic: Denies focal weakness and Denies Sensory deficit (Neuro) Psychiatric: Psychiatric: Reports no additional psychiatric complaints and Reports as per HPI Endocrine: Endocrine: Denies cold intolerance, Denies flushing, Denies heat intolerance, Denies polyphagia, Denies polydipsia and Denies palpitations Hematologic/Lymphatic: Hematologic/Lymphatic: Reports no additional hematologic/lymphatic complaints and Reports as per HPI Allergic/Immunologic: Allergic/Immunologic: Reports no additional allergic/immunologic complaints and Reports as per HPI [facility] Family History Family History (Updated 12/20/22 @ 21:59 by Stefany Hoover RN) Other Unknown family medical history Social History Social History Smoking status: Never smoker Alcohol intake: never Substance use: never Lack of Transportation: No Lack of Food: Never True Current Housing: I Have Housing Concerned About Future Housing: No Difficulty Paying Gas/Electric Bills: No Difficulty Paying for Meds: No Currently Unemployed: No Education: High School Diploma/GED Difficulty w/ Childcare or Family Care: No Spiritual care concerns: No Meds Home Medications and Allergies Home Medications Medication Instructions Recorded Confirmed Type albuterol sulfate 90 mcg/actuation 2 puff inhalation Q4H PRN SOB 12/20/22 01/04/23 History aerosol inhaler aspirin 81 mg tablet 81 mg PO DAILY 12/20/22 01/04/23 History gabapentin 600 mg tablet 600 mg PO TID 12/20/22 01/04/23 History hydrochlorothiazide 25 mg tablet 25 mg PO DAILY 12/20/22 01/04/23 History insulin glargine 100 unit/mL (3 25 unit subcut BIDWM 12/20/22 01/04/23 History mL) subcutaneous pen (Lantus Solostar U-100 Insulin) insulin lispro 100 unit/mL 15 unit subcut TIDWM 0
[2023-01-04 22:37] VITALS: BP 147/72; PULSE 82; RESP 20; O2SAT 98
[2023-01-04 22:55] VITALS: BP 142/77; PULSE 82; RESP 20; O2SAT 99
[2023-01-04 23:01] LABS: Troponin I < 0.012 ng/mL (0.000-0.034)
[2023-01-04 23:03] LABS: Alanine Aminotransferase 35 U/L (6-35); Alkaline Phosphatase 108 U/L (38-126); Anion Gap 6 mmol/L (8-16); Aspartate Amino Transferase 25 U/L (14-36); Bilirubin,Total 0.3 mg/dL (0.2-1.3); Blood Urea Nitrogen 24 mg/dL (7-17); Calcium 8.7 mg/dL (8.4-10.2); Carbon Dioxide 24 mmol/L (22-30); Chloride 104 mmol/L (98-107); Estimated Glomerular Filt Rate 27; Glucose 250 mg/dL (65-110); Potassium 5.8 mmol/L (3.4-5.0); Sodium 134 mmol/L (137-145)
[2023-01-04 23:05] VITALS: BP 148/69; PULSE 80; RESP 20; TEMP 36.4; O2SAT 100; BMI 46.3
[2023-01-04 23:16] VITALS: BMI 46.8
--- NOTE | 2023-01-04 23:21 | ADMGEN ---
This patient, Shasta Conklin, was admitted to IMU Room 214-01. Patient/family oriented to hospital policies and general routines including ID bracelet, bed and alarms, visiting hours, pain management, procedures, bathroom and other care routines, personal items, smoking policy, room service/diet, and visiting hours. Information on how to activate the Rapid Response Team has been discussed. Patient/Family are encouraged to report perceived risks to care and to ask questions if they do not understand what they are told or what they should do.
[2023-01-05] VITALS (18 sets, daily range): BP systolic 109–145; BP diastolic 47–61; PULSE 75–103; RESP 18–22; TEMP 35.6–36.4; O2SAT 94–99
[2023-01-05] MEDS: CALCIUM GLUC 2,000 MG/NS 100ML 2,000 MG/100 ML BAG 100 MG IVPB (00:36)
[2023-01-05] MEDS: SODIUM POLYSTYRENE SULFONONATE 15 GM/60 ML BTL PO (00:36)
[2023-01-05 04:57] LABS: Basophils Absolute Auto 0.1 K/mm3 (0.0-0.1); Basophils Percent Auto 0.7 % (0.2-1.2); Eosinophils Absolute Auto 0.2 K/mm3 (0-0.3); Eosinophils Percent Auto 2.4 % (0-4.4); Hematocrit 34.9 % (37.0-47.0); Hemoglobin 10.8 g/dL (12.0-15.0); Immature Granulocyte Absolute 0.02 K/mm3 (0.00-0.031); Immature Granulocyte Percent A 0.2 % (0-0.5); Lymphocytes Absolute Auto 4.96 K/mm3 (0.9-3.2); Lymphocytes Percent Auto 52.7 % (18.3-44.2); Mean Corpuscular HGB Conc 30.9 g/dl (32-36); Mean Corpuscular Hemoglobin 27.1 pg (26-34); Mean Corpuscular Volume 87.7 fl (80-100); Mean Platelet Volume 10.3 fl (7.4-10.4); Monocytes Absolute Auto 0.6 K/mm3 (0.1-0.6); Neutrophils Absolute Auto 3.6 K/mm3 (1.3-6.7); Platelet Count Result 260 k/mm3 (150-375); Red Blood Count 3.98 M/mm3 (4.2-5.4); Red Cell Distribution Width 12.8 % (11.5-14.5); White Blood Count 9.4 K/mm3 (4.5-10.0)
[2023-01-05 05:37] LABS: Anion Gap 8 mmol/L (8-16); Blood Urea Nitrogen 23 mg/dL (7-17); Calcium 8.9 mg/dL (8.4-10.2); Carbon Dioxide 21 mmol/L (22-30); Chloride 106 mmol/L (98-107); Estimated CRCL calculation 50 ml/min; Estimated Glomerular Filt Rate 38; Glucose 191 mg/dL (65-110); Potassium 5.9 mmol/L (3.4-5.0); Sodium 135 mmol/L (137-145); Troponin I < 0.012 ng/mL (0.000-0.034)
[2023-01-05 08:01] LABS: Glucose Point of Care 188 mg/dl (65-105)
[2023-01-05] MEDS: GABAPENTIN 300 MG CAPSULE 600 MG PO ×3 (09:20→18:04)
[2023-01-05] MEDS: LIPASE/AMYLASE/PROTEASE 12,000 UNITS CAP 2 CAP PO ×3 (09:20→18:04)
[2023-01-05] MEDS: INSULIN GLARGINE (*BKC) 100 UNITS/ML 25 UNITS SUB-Q ×2 (09:24→18:03)
[2023-01-05] MEDS: INSULIN ASPART (*BKC) 100 UNITS/ML 15 UNITS SUB-Q ×3 (09:28→18:02)
[2023-01-05] MEDS: ASPIRIN 81 MG CHEWABLE TABLET PO (09:30)
[2023-01-05 10:57] LABS: Basophils Absolute Auto 0.1 K/mm3 (0.0-0.1); Basophils Percent Auto 0.8 % (0.2-1.2); Eosinophils Absolute Auto 0.2 K/mm3 (0-0.3); Eosinophils Percent Auto 1.5 % (0-4.4); Hematocrit 34.6 % (37.0-47.0); Hemoglobin 10.9 g/dL (12.0-15.0); Immature Granulocyte Absolute 0.04 K/mm3 (0.00-0.031); Immature Granulocyte Percent A 0.4 % (0-0.5); Lymphocytes Absolute Auto 4.82 K/mm3 (0.9-3.2); Lymphocytes Percent Auto 44.2 % (18.3-44.2); Mean Corpuscular HGB Conc 31.5 g/dl (32-36); Mean Corpuscular Hemoglobin 27.4 pg (26-34); Mean Corpuscular Volume 86.9 fl (80-100); Mean Platelet Volume 10.8 fl (7.4-10.4); Monocytes Absolute Auto 0.6 K/mm3 (0.1-0.6); Monocytes Percent Auto 5.1 % (2.6-8.5); Neutrophils Absolute Auto 5.2 K/mm3 (1.3-6.7); Platelet Count Result 304 k/mm3 (150-375); Red Blood Count 3.98 M/mm3 (4.2-5.4); Red Cell Distribution Width 12.7 % (11.5-14.5); White Blood Count 10.9 K/mm3 (4.5-10.0)
[2023-01-05 11:07] LABS: D Dimer 2.06 ug/mL (<0.48)
[2023-01-05 12:18] LABS: Glucose Point of Care 165 mg/dl (65-105)
--- NOTE | 2023-01-05 13:35 | PM.IMPN ---
Progress Note: A&P Assessment and Plan (1) Hyperkalemia: Code(s): E87.5 - Hyperkalemia Status: Acute (2) Insulin dependent diabetes mellitus: Status: Acute (3) Morbid obesity with BMI of 45.0-49.9, adult: Code(s): E66.01 - Morbid (severe) obesity due to excess calories; Z68.42 - Body mass index [BMI] 45.0-49.9, adult Status: Acute (4) ALONZO (acute kidney injury): Code(s): N17.9 - Acute kidney failure, unspecified Status: Acute (5) Hypertension: Code(s): I10 - Essential (primary) hypertension Status: Acute Plan 01/05/2023: 62-year-old female presented with hyperkalemia of 6.7 at primary care physician's office. Repeat in the ER was 6.1. EKG with no changes. No symptoms. Workup with creatinine 1.9. Chest x-ray normal. Received calcium gluconate and Kayexalate. Mild anemia which has been stable. Creatinine down to 1.4 baseline is 1. Still has mildly elevated potassium will re-dose Kayexalate. Renal ultrasound unremarkable type 2 diabetes on insulin. Subjective Date/time seen: 01/05/23 13:35 Interval history: 62-year-old female presented with hyperkalemia of 6.7 at primary care physician's office. Repeat in the ER was 6.1. EKG with no changes. No symptoms. Workup with creatinine 1.9. Chest x-ray normal. Received calcium gluconate and Kayexalate. Mild anemia which has been stable. Creatinine down to 1.4 baseline is 1. Still has mildly elevated potassium will re-dose Kayexalate. Renal ultrasound unremarkable type 2 diabetes on insulin. Review of Systems Review of Systems: All systems reviewed & are unremarkable except as noted in HPI and below Exam Narrative: GENERAL: The patient is well developed, not in acute distress HEENT: Nonicteric sclerae, PERRLA, EOMI. Oropharynx clear. Moist mucous membranes. Conjunctivae appear well perfused. CHEST: Chest wall is nontender. HEART: Regular rate and rhythm without murmur, rubs, or gallops LUNGS: Clear to auscultation bilaterally. no respiratory distress ABDOMEN: Soft, positive bowel sounds, non-tender, no organomegaly. SKIN: No rash, no excessive bruising, petechiae, or purpura. Right foot with resolution of cellulitis. Scab on the sole with sloughing of skin noted NEUROLOGIC: Cranial nerves II-XII intact, alert and oriented x 3, no gross motor deficits EXTREMITIES: no edema, cyanosis or clubbing Objective Data Vital Signs Vital Signs: Vital Signs - 24 hr 01/04/23 22:37 01/04/23 22:55 01/04/23 23:05 Temperature 97.5 F L Pulse Rate 82 82 80 Respiratory Rate 20 20 20 Blood Pressure 147/72 H 142/77 H 148/69 H Pulse Oximetry 98 99 100 Oxygen Delivery 01/05/23 00:00 01/05/23 00:00 01/05/23 02:00 Temperature Pulse Rate 83 83 Respiratory Rate Blood Pressure Pulse Oximetry Oxygen Delivery Room Air 01/05/23 04:00 01/05/23 04:00 01/05/23 04:00 Temperature 97.3 F L Pulse Rate 80 86 Respiratory Rate 18 Blood Pressure 130/50 L Pulse Oximetry 98 Oxygen Delivery Room Air 01/05/23 06:00 01/05/23 08:07 01/05/23 09:12 Temperature 97.6 F Pulse Rate 81 80 Respiratory Rate 22 H Blood Pressure 131/61 Pulse Oximetry 98 94 Oxygen Delivery Room Air 01/05/23 11:52 Temperature 96.0 F L Pulse Rate 81 Respiratory Rate 20 Blood Pressure 145/55 H Pulse Oximetry 99 Oxygen Delivery Intake/Output Intake/Output: Intake & Output 01/02/23 01/03/23 01/04/23 01/05/23 23:59 23:59 23:59 23:59 Intake Total 1000 860 Output Total 1601 Balance 1000 -741 Meds/Results Medications: Active Medications Generic Name Dose Route Start Last Admin Trade Name Freq PRN Reason Stop Dose Admin Albuterol 2 puff 01/04/23 23:35 Albuterol Sulfate (*Sp) Aerosol 1 Puff INHALATION Q4H PRN Shortness Of Breath Lipase/Protease/Amylase 2 cap 01/05/23 08:00 01/05/23 12:35 Lipase/Amylase/Protease 12,000 Units Cap PO 2 cap TIDWM DEMIAN Admin
[2023-01-05] MEDS: SODIUM ZIRCONIUM CYCLOSILICATE 10 GM POWD.PACK PO (14:59)
[2023-01-05 16:45] LABS: Glucose Point of Care 151 mg/dl (65-105)
[2023-01-05 20:02] LABS: Glucose Point of Care 246 mg/dl (65-105)
[2023-01-05] MEDS: SIMVASTATIN 20 MG TABLET PO (20:03)
[2023-01-05 21:23] LABS: Potassium 5.4 mmol/L (3.4-5.0)
[2023-01-06] VITALS (7 sets, daily range): BP systolic 113–137; BP diastolic 47–61; PULSE 73–84; RESP 20–22; TEMP 35.8–36.3; O2SAT 97–100
[2023-01-06 04:39] LABS: Basophils Absolute Auto 0.1 K/mm3 (0.0-0.1); Basophils Percent Auto 0.9 % (0.2-1.2); Eosinophils Absolute Auto 0.2 K/mm3 (0-0.3); Eosinophils Percent Auto 2.5 % (0-4.4); Hematocrit 33.5 % (37.0-47.0); Hemoglobin 10.2 g/dL (12.0-15.0); Immature Granulocyte Absolute 0.02 K/mm3 (0.00-0.031); Immature Granulocyte Percent A 0.2 % (0-0.5); Lymphocytes Absolute Auto 3.67 K/mm3 (0.9-3.2); Lymphocytes Percent Auto 45.3 % (18.3-44.2); Mean Corpuscular HGB Conc 30.4 g/dl (32-36); Mean Corpuscular Hemoglobin 26.9 pg (26-34); Mean Corpuscular Volume 88.4 fl (80-100); Monocytes Absolute Auto 0.5 K/mm3 (0.1-0.6); Monocytes Percent Auto 6.3 % (2.6-8.5); Neutrophils Absolute Auto 3.6 K/mm3 (1.3-6.7); Neutrophils Percent Auto 44.8 % (45.5-73.1); Platelet Count Result 242 k/mm3 (150-375); Red Blood Count 3.79 M/mm3 (4.2-5.4); White Blood Count 8.1 K/mm3 (4.5-10.0)
[2023-01-06 04:55] LABS: Alanine Aminotransferase 31 U/L (6-35); Albumin Level 3.4 g/dL (3.5-5.1); Alkaline Phosphatase 79 U/L (38-126); Anion Gap 5 mmol/L (8-16); Aspartate Amino Transferase 25 U/L (14-36); Bilirubin,Total 0.3 mg/dL (0.2-1.3); Blood Urea Nitrogen 22 mg/dL (7-17); Calcium 8.2 mg/dL (8.4-10.2); Carbon Dioxide 29 mmol/L (22-30); Chloride 103 mmol/L (98-107); Estimated CRCL calculation 58 ml/min; Estimated Glomerular Filt Rate 45; Glucose 294 mg/dL (65-110); Magnesium 1.3 mg/dL (1.6-2.3); Potassium 5.4 mmol/L (3.4-5.0); Sodium 137 mmol/L (137-145)
[2023-01-06 08:40] LABS: Glucose Point of Care 244 mg/dl (65-105)
[2023-01-06] MEDS: GABAPENTIN 300 MG CAPSULE 600 MG PO ×3 (09:14→17:51)
[2023-01-06] MEDS: ASPIRIN 81 MG CHEWABLE TABLET PO (09:14)
[2023-01-06] MEDS: SODIUM ZIRCONIUM CYCLOSILICATE 10 GM POWD.PACK PO (09:14)
[2023-01-06] MEDS: LIPASE/AMYLASE/PROTEASE 12,000 UNITS CAP 2 CAP PO ×3 (09:14→17:51)
[2023-01-06] MEDS: INSULIN ASPART (*BKC) 100 UNITS/ML 15 UNITS SUB-Q ×3 (09:15→17:49)
[2023-01-06] MEDS: INSULIN GLARGINE (*BKC) 100 UNITS/ML 25 UNITS SUB-Q ×2 (09:15→17:49)
[2023-01-06] MEDS: MAGNESIUM SULF 2 GM/WATER 50ML 2 GM/50 ML BAG IVPB (09:38)
[2023-01-06 12:26] LABS: Glucose Point of Care 168 mg/dl (65-105)
--- NOTE | 2023-01-06 13:38 | PM.IMPN ---
Progress Note: A&P Assessment and Plan (1) Hyperkalemia: Code(s): E87.5 - Hyperkalemia Status: Acute (2) Insulin dependent diabetes mellitus: Status: Acute (3) Morbid obesity with BMI of 45.0-49.9, adult: Code(s): E66.01 - Morbid (severe) obesity due to excess calories; Z68.42 - Body mass index [BMI] 45.0-49.9, adult Status: Acute (4) ALONZO (acute kidney injury): Code(s): N17.9 - Acute kidney failure, unspecified Status: Acute (5) Hypertension: Code(s): I10 - Essential (primary) hypertension Status: Acute Plan 01/05/2023: 62-year-old female presented with hyperkalemia of 6.7 at primary care physician's office. Repeat in the ER was 6.1. EKG with no changes. No symptoms. Workup with creatinine 1.9. Chest x-ray normal. Received calcium gluconate and Kayexalate. Mild anemia which has been stable. Creatinine down to 1.4 baseline is 1. Still has mildly elevated potassium will re-dose Kayexalate. Renal ultrasound unremarkable type 2 diabetes on insulin. 01/06/2023:62-year-old female presented with hyperkalemia of 6.7 at primary care physician's office. Repeat in the ER was 6.1. EKG with no changes. No symptoms. Workup with creatinine 1.9. Chest x-ray normal. Received calcium gluconate and Kayexalate. Mild anemia which has been stable. Creatinine down to 1.4 baseline is 1. Still has mildly elevated potassium will re-dose Lokelma. Renal ultrasound unremarkable type 2 diabetes on insulin. Adjust doses. Creatinine continues to improve. Mild hyperkalemia treated with Lokelma. Replace magnesium Subjective Date/time seen: 01/06/23 13:38 Interval history: 62-year-old female presented with hyperkalemia of 6.7 at primary care physician's office. Repeat in the ER was 6.1. EKG with no changes. No symptoms. Workup with creatinine 1.9. Chest x-ray normal. Received calcium gluconate and Kayexalate. Mild anemia which has been stable. Creatinine down to 1.4 baseline is 1. Still has mildly elevated potassium will re-dose Kayexalate. Renal ultrasound unremarkable type 2 diabetes on insulin. 01/06: feeling better. Denies any chest pain or shortness of breath. Labs were reviewed. Review of Systems Review of Systems: All systems reviewed & are unremarkable except as noted in HPI and below Exam Narrative: GENERAL: The patient is well developed, not in acute distress HEENT: Nonicteric sclerae, PERRLA, EOMI. Oropharynx clear. Moist mucous membranes. Conjunctivae appear well perfused. CHEST: Chest wall is nontender. HEART: Regular rate and rhythm without murmur, rubs, or gallops LUNGS: Clear to auscultation bilaterally. no respiratory distress ABDOMEN: Soft, positive bowel sounds, non-tender, no organomegaly. SKIN: No rash, no excessive bruising, petechiae, or purpura. Right foot with resolution of cellulitis. Scab on the sole with sloughing of skin noted NEUROLOGIC: Cranial nerves II-XII intact, alert and oriented x 3, no gross motor deficits EXTREMITIES: no edema, cyanosis or clubbing Objective Data Vital Signs Vital Signs: Vital Signs - 24 hr 01/05/23 16:19 01/05/23 14:00 01/05/23 16:00 Temperature 96.5 F L Pulse Rate 79 75 77 Respiratory Rate 20 Blood Pressure 129/59 L Pulse Oximetry 99 Oxygen Delivery 01/05/23 18:00 01/05/23 19:41 01/05/23 20:00 Temperature 97.1 F L Pulse Rate 99 79 Respiratory Rate 18 Blood Pressure 110/58 L Pulse Oximetry 98 Oxygen Delivery Room Air 01/05/23 20:00 01/05/23 22:00 01/05/23 23:40 Temperature 97.4 F L Pulse Rate 103 H 78 82 Respiratory Rate 20 Blood Pressure 109/47 L Pulse Oximetry 96 Oxygen Delivery 01/06/23 00:00 01/06/23 00:00 01/06/23 04:00 Temperature Pulse Rate 84 Respiratory Rate Blood Pressure Pulse Oximetry Oxygen Delivery Room Air Room Air 01/06/23 04:00 01/06/23 04:00 01/06/23 09:09 Temperature 97.3 F L 97.1 F L Pulse Rate 80 79
--- NOTE | 2023-01-06 15:14 | PC.NURSE ---
This patient, Shasta Conklin, was transferred to [[facility] ] on 01/06/23 at [id number]. Personal belongings sent with patient. Report given to [LANEY Rios @ [phone] ]. Appropriate documentation sent with patient.
[2023-01-06 16:31] LABS: Glucose Point of Care 166 mg/dl (65-105)
[2023-01-06 20:59] LABS: Glucose Point of Care 311 mg/dl (65-105)
[2023-01-06] MEDS: traMADol HCL (*CRX) 25 MG TABLET PO (21:56)
[2023-01-06] MEDS: SIMVASTATIN 20 MG TABLET PO (21:56)
[2023-01-07 06:06] VITALS: BP 129/51; PULSE 72; RESP 20; TEMP 35.5; O2SAT 98
[2023-01-07 06:48] LABS: Basophils Absolute Auto 0.1 K/mm3 (0.0-0.1); Basophils Percent Auto 0.6 % (0.2-1.2); Eosinophils Absolute Auto 0.2 K/mm3 (0-0.3); Eosinophils Percent Auto 1.8 % (0-4.4); Hematocrit 32.1 % (37.0-47.0); Hemoglobin 9.9 g/dL (12.0-15.0); Immature Granulocyte Absolute 0.02 K/mm3 (0.00-0.031); Immature Granulocyte Percent A 0.2 % (0-0.5); Lymphocytes Absolute Auto 4.24 K/mm3 (0.9-3.2); Lymphocytes Percent Auto 49.7 % (18.3-44.2); Mean Corpuscular HGB Conc 30.8 g/dl (32-36); Mean Corpuscular Hemoglobin 26.8 pg (26-34); Mean Corpuscular Volume 86.8 fl (80-100); Mean Platelet Volume 10.6 fl (7.4-10.4); Monocytes Absolute Auto 0.5 K/mm3 (0.1-0.6); Monocytes Percent Auto 5.9 % (2.6-8.5); Neutrophils Absolute Auto 3.6 K/mm3 (1.3-6.7); Neutrophils Percent Auto 41.8 % (45.5-73.1); Platelet Count Result 204 k/mm3 (150-375); Red Cell Distribution Width 12.6 % (11.5-14.5); White Blood Count 8.5 K/mm3 (4.5-10.0)
[2023-01-07 07:21] LABS: Alanine Aminotransferase 30 U/L (6-35); Albumin Level 3.4 g/dL (3.5-5.1); Alkaline Phosphatase 88 U/L (38-126); Anion Gap 5 mmol/L (8-16); Aspartate Amino Transferase 29 U/L (14-36); Bilirubin,Total 0.3 mg/dL (0.2-1.3); Blood Urea Nitrogen 23 mg/dL (7-17); Calcium 8.4 mg/dL (8.4-10.2); Carbon Dioxide 27 mmol/L (22-30); Chloride 102 mmol/L (98-107); Estimated CRCL calculation 79 ml/min; Estimated Glomerular Filt Rate > 60; Glucose 258 mg/dL (65-110); Magnesium 1.6 mg/dL (1.6-2.3); Potassium 4.8 mmol/L (3.4-5.0); Sodium 134 mmol/L (137-145)
[2023-01-07 08:01] LABS: Glucose Point of Care 242 mg/dl (65-105)
[2023-01-07] MEDS: INSULIN ASPART (*BKC) 100 UNITS/ML 15 UNITS SUB-Q ×2 (09:50→12:49)
[2023-01-07] MEDS: INSULIN GLARGINE (*BKC) 100 UNITS/ML 25 UNITS SUB-Q (09:50)
[2023-01-07] MEDS: GABAPENTIN 300 MG CAPSULE 600 MG PO ×2 (09:51→12:50)
[2023-01-07] MEDS: LIPASE/AMYLASE/PROTEASE 12,000 UNITS CAP 2 CAP PO ×2 (09:51→12:49)
[2023-01-07] MEDS: ASPIRIN 81 MG CHEWABLE TABLET PO (09:51)
[2023-01-07] MEDS: SODIUM ZIRCONIUM CYCLOSILICATE 10 GM POWD.PACK PO (09:52)
--- NOTE | 2023-01-07 11:29 | PM.DS ---
DS: Admitting Diagnosis Discharge Date 01/07/2023 Admitting Diagnosis Abnormal labs DS: Discharge Diagnosis Discharge Diagnosis (1) Hyperkalemia: Code(s): E87.5 - Hyperkalemia Status: Acute (2) Insulin dependent diabetes mellitus: Status: Acute (3) Morbid obesity with BMI of 45.0-49.9, adult: Code(s): E66.01 - Morbid (severe) obesity due to excess calories; Z68.42 - Body mass index [BMI] 45.0-49.9, adult Status: Acute (4) ALONZO (acute kidney injury): Code(s): N17.9 - Acute kidney failure, unspecified Status: Acute (5) Hypertension: Code(s): I10 - Essential (primary) hypertension Status: Acute DS: Summary Hospital Course Hospital Course: 62-year-old female presented with hyperkalemia of 6.7 at primary care physician's office.? Repeat in the ER was 6.1.? EKG with no changes.? No symptoms.? Workup with creatinine 1.9.? Chest x-ray normal.? Received calcium gluconate and Kayexalate.? Mild anemia which has been stable.? Creatinine down to 1.4 baseline is 1.? Patient was treated with Lokelma for hyperkalemia and monitored them throughout the hospital stay. Potassium and creatinine normalized by the time of discharge.? Renal ultrasound unremarkable type 2 diabetes on insulin.? Adjust doses. Patient's hydrochlorothiazide and lisinopril was stopped at discharge her blood pressure was reasonable throughout the hospital stay and hence any other blood pressure medication were deferred. She is advised to keep an eye on her blood pressure and to follow up with PCP in week for re-evaluation of for blood pressure regimen Time Spent with Patient Time attestation: Total time spent providing and/or coordinating discharge services: 30 minutes Exam Narrative: GENERAL: The patient is well developed, not in acute distress HEENT: Nonicteric sclerae, PERRLA, EOMI. Oropharynx clear. Moist mucous membranes. Conjunctivae appear well perfused. CHEST: Chest wall is nontender. HEART: Regular rate and rhythm without murmur, rubs, or gallops LUNGS: Clear to auscultation bilaterally. no respiratory distress ABDOMEN: Soft, positive bowel sounds, non-tender, no organomegaly. SKIN: No rash, no excessive bruising, petechiae, or purpura. Right foot with resolution of cellulitis. Scab on the sole with sloughing of skin noted NEUROLOGIC: Cranial nerves II-XII intact, alert and oriented x 3, no gross motor deficits EXTREMITIES: no edema, cyanosis or clubbing DS: Data Data Completed and Pending Labs on day of discharge: Labs from last 24 hours 01/07/23 01/07/23 01/06/23 07:50 06:36 20:55 WBC 8.5 RBC 3.70 L Hgb 9.9 L Hct 32.1 L MCV 86.8 MCH 26.8 MCHC 30.8 L RDW 12.6 Plt Count 204 MPV 10.6 H Immature Gran % (Auto) 0.2 Neut % (Auto) 41.8 L Lymph % (Auto) 49.7 H [place] % (Auto) 5.9 Eos % (Auto) 1.8 Baso % (Auto) 0.6 Lymph # (Auto) 4.24 H [place] # (Auto) 0.5 Eos # (Auto) 0.2 Baso # (Auto) 0.1 Abs Immat Gran (auto) 0.02 Absolute Neuts (auto) 3.6 Absolute Nucleated RBC 0.0 Nucleated RBC % 0.0 Sodium 134 L Potassium 4.8 Chloride 102 Carbon Dioxide 27 Anion Gap 5 L BUN 23 H Creatinine 0.90 Estim Creat Clear Calc 79 Estimated GFR > 60 Glucose 258 H POC Capillary Glucose 242 H 311 H Calcium 8.4 Magnesium 1.6 Total Bilirubin 0.3 AST 29 ALT 30 Alkaline Phosphatase 88 Total Protein 7.0 Albumin 3.4 L 01/06/23 01/06/23 16:25 11:55 WBC RBC Hgb Hct MCV MCH MCHC RDW Plt Count MPV Immature Gran % (Auto) Neut % (Auto) Lymph % (Auto) [place] % (Auto) Eos % (Auto) Baso % (Auto) Lymph # (Auto) [place] # (Auto) Eos # (Auto) Baso # (Auto) Abs Immat Gran (auto) Absolute Neuts (auto) Absolute Nucleated RBC Nucleated RBC % Sodium Potassium Chloride Carbon Dioxide Anion Gap BUN Creatinine Estim Crea
[2023-01-07 11:55] LABS: Glucose Point of Care 297 mg/dl (65-105)
== END 2023-01-07 14:40 | disposition home or self-care (01) ==
LOC: ANHED 20:20 → ANHIMU 22:56 → ANH3MEDSUR 01-07 11:29 → ANHIMU 01-10 09:15
PROVIDERS: Admitting Provider Internal Medicine; Emergency Provider Emergency Medicine; Visit Provider Internal Medicine
DX: E87.5 Hyperkalemia (principal); E11.9 Type 2 diabetes mellitus without complications; E66.01 Morbid (severe) obesity due to excess calories; Z68.43 Body mass index [BMI] 50.0-59.9, adult; N17.9 Acute kidney failure, unspecified; R06.02 Shortness of breath; M79.89 Other specified soft tissue disorders; I10 Essential (primary) hypertension; R53.81 Other malaise; M62.838 Other muscle spasm; Z79.51 Long term (current) use of inhaled steroids; Z79.82 Long term (current) use of aspirin; Z79.4 Long term (current) use of insulin; Z79.84 Long term (current) use of oral hypoglycemic drugs; Z79.899 Other long term (current) drug therapy
CPT/HCPCS: 36415; 71045; 73620; 76775; 80048; 80053; 82948; 83735; 84132; 84484; 85025; 85380; 85610; 85730; 93005; 96365; 96366; 99285; A9270; G0378; G0379; J0613; J1815; J3475; J7030

== ENCOUNTER 2023-02-06 15:55 | Outpatient (CLI) | payer OTHER, SELFPAY ==
[2023-02-06 16:40] LABS: Alanine Aminotransferase 21 U/L (6-35); Alkaline Phosphatase 112 U/L (38-126); Anion Gap 9 mmol/L (8-16); Aspartate Amino Transferase 18 U/L (14-36); Bilirubin,Total 0.4 mg/dL (0.2-1.3); Blood Urea Nitrogen 20 mg/dL (7-17); Calcium 8.9 mg/dL (8.4-10.2); Carbon Dioxide 30 mmol/L (22-30); Chloride 97 mmol/L (98-107); Estimated Glomerular Filt Rate 50; Glucose 288 mg/dL (65-110); Potassium 4.6 mmol/L (3.4-5.0); Sodium 136 mmol/L (137-145)
[2023-02-06 16:42] LABS: Hemoglobin A1C 10.4 % (<5.7)
== END 2023-02-06 15:56 | disposition home or self-care (01) ==
LOC: ANHLAB 15:57
PROVIDERS: PCP Family Medicine; Visit Provider Physician Assistant
DX: E11.9 Type 2 diabetes mellitus without complications (principal); I10 Essential (primary) hypertension
CPT/HCPCS: 36415; 80053; 83036

== ENCOUNTER 2023-05-30 13:39 | Outpatient (CLI) | payer OTHER, SELFPAY ==
[2023-05-30 14:26] LABS: Basophils Absolute Auto 0.1 K/mm3 (0.0-0.1); Basophils Percent Auto 0.7 % (0.2-1.2); Eosinophils Absolute Auto 0.1 K/mm3 (0-0.3); Eosinophils Percent Auto 1.1 % (0-4.4); Hematocrit 36.3 % (37.0-47.0); Hemoglobin 11.7 g/dL (12.0-15.0); Immature Granulocyte Absolute 0.03 K/mm3 (0.00-0.031); Immature Granulocyte Percent A 0.3 % (0-0.5); Lymphocytes Absolute Auto 3.64 K/mm3 (0.9-3.2); Lymphocytes Percent Auto 36.9 % (18.3-44.2); Mean Corpuscular HGB Conc 32.2 g/dl (32-36); Mean Corpuscular Hemoglobin 27.5 pg (26-34); Mean Corpuscular Volume 85.4 fl (80-100); Mean Platelet Volume 11.6 fl (7.4-10.4); Monocytes Absolute Auto 0.6 K/mm3 (0.1-0.6); Monocytes Percent Auto 5.7 % (2.6-8.5); Neutrophils Absolute Auto 5.5 K/mm3 (1.3-6.7); Neutrophils Percent Auto 55.3 % (45.5-73.1); Platelet Count Result 216 k/mm3 (150-375); Red Blood Count 4.25 M/mm3 (4.2-5.4); Red Cell Distribution Width 12.5 % (11.5-14.5); White Blood Count 9.9 K/mm3 (4.5-10.0)
[2023-05-30 14:35] LABS: Hemoglobin A1C 8.3 % (<5.7)
[2023-05-30 14:39] LABS: Alanine Aminotransferase 22 U/L (6-35); Albumin Level 4.3 g/dL (3.5-5.1); Alkaline Phosphatase 99 U/L (38-126); Anion Gap 10 mmol/L (8-16); Aspartate Amino Transferase 19 U/L (14-36); Bilirubin,Total 0.5 mg/dL (0.2-1.3); Blood Urea Nitrogen 19 mg/dL (7-17); Calcium 9.3 mg/dL (8.4-10.2); Carbon Dioxide 24 mmol/L (22-30); Chloride 102 mmol/L (98-107); Cholesterol 141 mg/dL (0-200); Estimated Glomerular Filt Rate > 60; Glucose 266 mg/dL (65-110); HDL Direct 44 mg/dL; Potassium 4.5 mmol/L (3.4-5.0); Sodium 136 mmol/L (137-145); Triglycerides 153 mg/dL (<150)
[2023-05-30 14:50] LABS: LDL Cholesterol Direct 72 mg/dL
== END 2023-05-30 13:40 | disposition home or self-care (01) ==
PROVIDERS: PCP Family Medicine; Visit Provider Physician Assistant
DX: E78.5 Hyperlipidemia, unspecified (principal); D64.9 Anemia, unspecified; I10 Essential (primary) hypertension; E11.9 Type 2 diabetes mellitus without complications
CPT/HCPCS: 36415; 80053; 80061; 83036; 85025

== ENCOUNTER 2024-01-11 13:38 | Outpatient (CLI) | payer OTHER, SELFPAY ==
[2024-01-11 14:28] LABS: Hemoglobin A1C 9.6 % (<5.7)
[2024-01-11 14:31] LABS: Alanine Aminotransferase 18 U/L (6-35); Albumin Level 4.6 g/dL (3.5-5.1); Alkaline Phosphatase 77 U/L (38-126); Anion Gap 8 mmol/L (4-12); Aspartate Amino Transferase 21 U/L (14-36); Bilirubin,Total 0.5 mg/dL (0.2-1.3); Blood Urea Nitrogen 27 mg/dL (7-17); Carbon Dioxide 25 mmol/L (22-30); Chloride 108 mmol/L (98-107); Cholesterol 124 mg/dL (0-200); Estimated Glomerular Filt Rate 41; Glucose 182 mg/dL (65-110); HDL Direct 43 mg/dL; Potassium 5.8 mmol/L (3.4-5.0); Sodium 141 mmol/L (137-145); Triglycerides 153 mg/dL (<150)
[2024-01-11 14:42] LABS: LDL Cholesterol Direct 67 mg/dL
== END 2024-01-11 13:39 | disposition home or self-care (01) ==
LOC: ANHLAB 13:39
PROVIDERS: PCP Family Medicine; Visit Provider Physician Assistant
DX: E78.5 Hyperlipidemia, unspecified (principal); E11.9 Type 2 diabetes mellitus without complications; I10 Essential (primary) hypertension
CPT/HCPCS: 36415; 80053; 80061; 83036

== ENCOUNTER 2024-02-09 14:53 | Outpatient (CLI) | payer OTHER, SELFPAY ==
[2024-02-09 15:42] LABS: Alanine Aminotransferase 19 U/L (6-35); Albumin Level 4.8 g/dL (3.5-5.1); Alkaline Phosphatase 70 U/L (38-126); Anion Gap 14 mmol/L (4-12); Aspartate Amino Transferase 21 U/L (14-36); Bilirubin,Total 0.5 mg/dL (0.2-1.3); Blood Urea Nitrogen 26 mg/dL (7-17); Calcium 9.5 mg/dL (8.4-10.2); Carbon Dioxide 22 mmol/L (22-30); Chloride 102 mmol/L (98-107); Estimated Glomerular Filt Rate 38; Glucose 123 mg/dL (65-110); Potassium 5.2 mmol/L (3.4-5.0); Sodium 138 mmol/L (137-145)
== END 2024-02-09 14:54 | disposition home or self-care (01) ==
LOC: ANHLAB 14:56
PROVIDERS: PCP Family Medicine; Visit Provider Physician Assistant
DX: R32 Unspecified urinary incontinence (principal); E11.9 Type 2 diabetes mellitus without complications
CPT/HCPCS: 36415; 80053; 87077; 87086; 87088; 87186

== ENCOUNTER 2024-05-06 16:22 | Outpatient (CLI) | payer OTHER, SELFPAY ==
--- NOTE | ~2024-05-06 | XR_ITS ---
EXAMINATION: XR lumbar spine 6V w bending DATE: 05/06/2024 17:11 INDICATION: Postlaminectomy syndrome, not elsewhere classified. TECHNIQUE: 7 views of lumbar spine including standing views and flexion and extension views were obta ined. COMPARISON: None. FINDINGS: There is 3 degrees levocurvature of lumbar spine. There is 3 mm anterolisthesis of L4 on L5 . The spine is hypomobile with flexion and extension. There is mild chronic anterior wedging of T12 a nd L1 vertebral bodies. There is mildly decreased disc height at L2-L3, L3-L4, and L4-L5. There is mu ltilevel severe facet joint osteoarthritis. IMPRESSION: 1. Mild lumbar spondylosis. Reviewed, dictated and finalized at location A. IMPRESSION: 1. Mild lumbar spondylosis.
--- NOTE | ~2024-05-06 | XR_ITS ---
EXAMINATION: XR cervical spine 4-5V DATE: 05/06/2024 17:11 INDICATION: Neck pain. TECHNIQUE: 6 views of cervical spine including flexion and extension views were obtained. COMPARISON: Cervical spine radiographs 02/01/2008 FINDINGS: There is kyphosis of cervical spine. The spine is hypomobile with extension. Vertebral body heights are normal. There is moderately decreased disc height at C4-C5 and severely decreased disc h eight at C5-C6 and C6-C7. There is multilevel uncovertebral joint osteoarthritis, severe bilaterally from C4-C5 through C6-C7. There is multilevel [id number] facet joint osteoarthritis, left worse than right. There is mild central canal stenosis at C4-C5 and C5-C6. No prevertebral soft tissue swe lling. IMPRESSION: 1. Severe cervical spondylosis. Reviewed, dictated and finalized at location A.
== END 2024-05-06 16:23 | disposition home or self-care (01) ==
LOC: ANHIMG 16:25
PROVIDERS: PCP Physician Assistant; Visit Provider Anesthesiology Pain Medicine
DX: M96.1 Postlaminectomy syndrome, not elsewhere classified (principal); M47.817 Spondylosis without myelopathy or radiculopathy, lumbosacral region; M47.812 Spondylosis without myelopathy or radiculopathy, cervical region
CPT/HCPCS: 72050; 72114

== ENCOUNTER 2024-06-12 15:44 | Outpatient (CLI) | payer OTHER, SELFPAY ==
--- NOTE | ~2024-06-12 | US_ITS ---
EXAMINATION: US renal BI DATE: 06/12/2024 16:49 INDICATION: Disorder of kidney and ureter TECHNIQUE: Multiple ultrasound grayscale images of the kidneys were obtained. COMPARISON: None. FINDINGS: The right kidney measures 10.8 x 4.7 x 6.1 cm. The left kidney measures 9.8 x 4.6 x 5.0 cm. The kidne ys demonstrate normal echogenicity. There is no hydronephrosis in either kidney. No stones identifie d. The bladder is normal with bilateral ureteral jets visualized on color Doppler. IMPRESSION: 1. Normal kidneys without hydronephrosis. Reviewed, dictated and finalized at location B. [facility]
== END 2024-06-12 15:45 | disposition home or self-care (01) ==
LOC: ANHIMG 15:45
PROVIDERS: PCP Physician Assistant; Visit Provider Internal Medicine Nephrology
DX: N28.9 Disorder of kidney and ureter, unspecified (principal); E11.9 Type 2 diabetes mellitus without complications
CPT/HCPCS: 76775

== ENCOUNTER 2024-07-02 13:51 | Outpatient (CLI) | payer OTHER, SELFPAY ==
[2024-07-02 14:53] LABS: Albumin Level 4.3 g/dL (3.5-5.1); Anion Gap 5 mmol/L (4-12); Blood Urea Nitrogen 20 mg/dL (7-17); Calcium 9.5 mg/dL (8.4-10.2); Carbon Dioxide 27 mmol/L (22-30); Chloride 107 mmol/L (98-107); Estimated Glomerular Filt Rate 56; Glucose 113 mg/dL (65-110); Phosphorus 3.7 mg/dL (2.5-4.5); Potassium 4.9 mmol/L (3.4-5.0); Sodium 139 mmol/L (137-145)
[2024-07-02 14:58] LABS: Creatinine Urine 75.9 mg/dL; Total Protein Urine Random 6 mg/dL; Ur Ttl Prot Creatinine Ratio 0.08 mg/mg (0-0.20)
[2024-07-02 15:02] LABS: Complement C3 110 mg/dL (88-165)
[2024-07-03 07:48] LABS: Protein, Total 7.2 g/dL (6.1-8.1)
[2024-07-04 02:58] LABS: Creatinine, Random Urine 73 mg/dL (20-275); Total Protein/Creatinine Ratio 110 mg/g creat (24-184)
[2024-07-05 15:33] LABS: Anti Glomerular Basement Memb <1.0 AI
[2024-07-06 06:33] LABS: ANCA Screen NEGATIVE (NEGATIVE)
[2024-07-10 20:44] LABS: Albumin 4.1 g/dL (3.8-4.8); Alpha 1 Globulin 0.3 g/dL (0.2-0.3); Alpha 2 Globulin 0.8 g/dL (0.5-0.9); Beta 1 Globulin 0.5 g/dL (0.4-0.6); Gamma Globulin 1.2 g/dL (0.8-1.7)
== END 2024-07-02 13:52 | disposition home or self-care (01) ==
PROVIDERS: PCP Physician Assistant; Visit Provider Internal Medicine Nephrology
DX: N28.9 Disorder of kidney and ureter, unspecified (principal); E11.9 Type 2 diabetes mellitus without complications
CPT/HCPCS: 36415; 80069; 82570; 83520; 84155; 84156; 84165; 84166; 86036; 86038; 86039; 86160; 86225

== ENCOUNTER 2024-07-26 12:30 | Outpatient (RCR) | payer MEDICAID, OTHER, SELFPAY ==
--- NOTE | 2024-06-12 15:24 | OPREHPOC ---
Outpatient Therapy Plan of Care This is a Multidisciplinary Plan of Care that may contain components documented by all disciplines (PT, OT, and ST.) PT Problem 1 PT Problem #1 Knowledge Deficit PT Goal 1 Goal / Goal Update *indep HEP Target Visit 10 PT Problem 2 PT Problem #2 Pain PT Goal 1 Goal / Goal Update 1* decrease back pain rating to 7/10 at worst 2* self assessment Oswestry rating of 46% limitation in activity level 3* pt report sleeping tolerance of 5-6 hours at time Target Visit 10 PT Problem 3 PT Problem #3 Impaired Functional Mobility PT Goal 1 Goal / Goal Update improve strength and mobility skills, to increase activity level: 1* sit/stand with use of 1 UE x 5 reps 2* 5 reps sit/stand time of 20 seconds 3* 2 minute walking test distance with rollator, 250' 4* pt static stand without UE support x 30 seconds 5* pt stand with trunk flexion ~ 20' Target Visit 10
--- NOTE | 2024-06-12 15:24 | PTOPEVAL1 ---
Assessment and note entered by Yani Harvey, PT Evaluation Information Assessment Status Evaluation ICD-10 Condition Codes (PT) Cervicalgia M54.2,Pain in low back M54.50,M54.13, M54.15,Difficulty Walking R26.2,R26.9,Weakness R53 .1 Onset about 1 year Subjective Information have chronic back pain since back surgery ~ 2019; have had nerve ablation; increase problems with neck and back pain; about a year ago was able to walk with the cane, now have to use the wheeled walker; working with pain management ; going to have MRI this afternoon; has talked with her about an implanted pain stimulator; have had PT in the past for her back for exercises after surgery-- made pain worse Activity level: use wheeled walker all the time; live alone, use wheeled desk chair for mobility and doing home chores; is able to drive and do everything herself. Goal: less pain in back Reported Pain Level Pain Score Self Report Additional Pain Score Comments pain range in the past week 4-10/10; R and L lumbar- squeezing on her back, sore and hurts; no leg pain but have cramps in legs sometimes increase pain: stand up straight and reach overhead; yawns big; decrease pain: sit/rest, lie on side; tramadol 1- 2x/day; heat sleeping 4-6 hours at time Assessment PT Clinical Summary Shasta has the diagnosis of neck and back pain, chronic pain. She reports the back is bothering her more, so treatment to begin with her back. Self assessment Oswestry rating of 56% limitation in activity level. She has chronic back pain and lumbar surgery ~ 2019. She lives alone and does her home tasks from sitting position, in a wheeled desk chair. With the evaluation: she is not able to stand upright due to pain, holds trunk flexion ~ 30' with standing tolerance, without UE support of 18 seconds; 5 reps sit/stand with bilateral UE use in 25 seconds; 2 minute walking test distance with rollator of 180' with pain increase to 8/10. Weakness of both legs and trunk. She does not do any exercises for her legs or back at home. Skilled PT services are indicated for modalities to decrease pain, aquatic and land exercises to increase LE strength and mobility, with education for HEP and pain management. Plan of Care Interventions Aquatic Therapy,Electrical Stimulation,Hot Pack/ Cold Pack,Manual Therapy,Neuro Re-education, Patient Education,Therapeutic Activities, Therapeutic Exercise,Ultrasound,Other Other Interventions taping PT Services Indicated Yes Treatment Frequency and 2x/wk for 10 visits Duration These treatments will address the objective and functional deficits as defined above. The patient will be advanced safely and appropriately in order for the patient to progress towards his/her prior level of function. Additional exercises will be introduced and as well as a comprehensive home exercise program upon discharge, if needed, ?to ensure carryover of functional gains achieved in the clinic. This treatment plan has been reviewed and agreement upon by the patient.
--- NOTE | 2024-06-28 15:04 | PCPTNOTE ---
Pt NS she thought she would get reminder texts about appts.
--- NOTE | 2024-07-25 15:05 | PCPTNOTE ---
faxed request to her general provider for PT and treatment for vertigo.
--- NOTE | 2024-07-26 15:26 | OPREHPOC ---
Outpatient Therapy Plan of Care This is a Multidisciplinary Plan of Care that may contain components documented by all disciplines (PT, OT, and ST.) PT Problem 1 PT Problem #1 Knowledge Deficit PT Goal 1 Goal / Goal Update *indep HEP 07-26-24 d/c back treatment/ EVAL vertigo goal met NEW GOAL: continue towards goal for vestibular education Target Visit 15 PT Problem 2 PT Problem #2 Pain PT Goal 1 Goal / Goal Update 1* decrease back pain rating to 7/10 at worst 2* self assessment Oswestry rating of 46% limitation in activity level 3* pt report sleeping tolerance of 5-6 hours at time 07-26-24 d/c back treatment goals not met; pain 7-9/10; Oswestry 58%; sleeping 3-4 hours Discontinue intervention Target Visit 10 Progress Not Met PT Problem 3 PT Problem #3 Impaired Functional Mobility PT Goal 1 Goal / Goal Update improve strength and mobility skills, to increase activity level: 1* sit/stand with use of 1 UE x 5 reps 2* 5 reps sit/stand time of 20 seconds 3* 2 minute walking test distance with rollator, 250' 4* pt static stand without UE support x 30 seconds 5* pt stand with trunk flexion ~ 20' 07-26-24 d/c back treatment/ EVAL vertigo goal 1 met NEW GOALS: pt perform without any vestibular issues: 1* supine/sit transfer 2* rolling in bed 3* standing and leaning forward Target Visit 15
--- NOTE | 2024-07-26 15:27 | PTOPPROG ---
Assessment and note entered by Yani Harvey, PT Evaluation Information Assessment Status Evaluation ICD-10 Condition Codes (PT) Difficulty Walking R26.2,Abnormalities of gait and mobility R26.9,Weakness R53.1,Dizziness and Giddiness R42 Onset about 1 year Subjective Information BACK PAIN: legs are stronger, able to walk better- can walk few steps without holding onto anything; have been doing the exercises and moving my legs; want to stop therapy on legs and walking and work on vertigo; PAIN: range in the past week of 7-04/02; with sleeping- 3-4 hours at time VERTIGO: ONSET few weeks ago it started; have not had any vertigo in the past; SYMPTOMS: dizzy and spinning, last few minutes INCREASE: lean forward, roll over in bed DECREASE: sit still History: reading glasses, cataract surgery bilateral; no allergy, sinus issues; no changes in meds lately; neck pain Assessment PT Clinical Summary Shasta has received 9 PT sessions for back pain and leg weakness. She did not show for one appointment. NEW ORDERS: from Dr Denton for diagnosis of vertigo. Compared to the initial evaluation: pain from 05/02 to 7-04/02; Oswestry self assessment from 56 to 58% limitation in activity level; static standing without UE support is the same at 20 seconds; standing posture is with ~ 30' of trunk and hip flexion due to increase back pain; increase LE strength--is able to transfer sit/ stand without use of UE from 18 seat; 2 minute walking test with rollator walker, from 180' to 160'; gait pattern is improved, is able to ambulate ~ 60' with hands on hand auction assistant of walker then places forearms on hand auction assistant; Education completed for HEP and gait pattern. The goals were partially achieved. She presents with new orders for vertigo diagnosis. Shelly this date for vertigo treatment. With eval, Dizziness Handicap Index rating of 56%; symptoms increase with supine to sitting, rolling over in bed and leaning forward; she was positive for BPPV on R anterior/posterior canal. Performed Eply maneuver to the R and symptoms decreased. Skilled PT services are to STOP for back and leg issues and initiate vestibular treatment. Plan of Care Interventions Neuro Re-education,Therapeutic Activities Other Interventions PT Services Indicated Yes Treatment Frequency and 1-2x/wk for 6 visits Duration These treatments will address the objective and functional deficits as defined above. The patient will be advanced safely and appropriately in order for the patient to progress towards his/her prior level of function. Additional exercises will be introduced and as well as a comprehensive home exercise program upon discharge, if needed, ?to ensure carryover of functional gains achieved in the clinic. This treatment plan has been reviewed and agreement upon by the patient.
--- NOTE | 2024-08-05 16:03 | PCPTNOTE ---
Pt canceled due to of son.
--- NOTE | 2024-08-08 15:14 | PCPTNOTE ---
Pt no call no showed her appointment this date.
--- NOTE | 2024-08-13 16:25 | PCPTNOTE ---
Pt no called no showed again today for appt.
--- NOTE | 2024-08-16 15:03 | PCPTNOTE ---
Pt NS for the third time today. Pt has had recent loss of son. LM for her to let us know is want to cancel the remaining visits or if she intends to come in next week.
--- NOTE | 2024-08-22 15:18 | PCPTNOTE ---
pt did not show for today's reevaluation appt.
--- NOTE | 2024-09-10 10:59 | PTOPDC ---
Assessment and note entered by Yani Harvey, PT Assessment Status Discharge - Pt Not Present ICD-10 Condition Codes (PT) Difficulty Walking R26.2,Abnormalities of gait and mobility R26.9,Weakness R53.1,Dizziness and Giddiness R42 Onset about 1 year Subjective Information pt was not seen this date. Assessment PT Clinical Summary Shasta has not returned for treatment since the July 26 progress report. She called and canceled treatment appointment on August 05 due to her son's . And has not returned for any further treatments. Discharge PT. The goals were not addressed. Plan of Care PT Services Indicated No
== END 2024-09-10 15:19 | disposition home or self-care (01) ==
LOC: ANHPT 12:30
PROVIDERS: PCP Physician Assistant; Visit Provider Family Medicine
DX: H81.11 Benign paroxysmal vertigo, right ear (principal); M54.2 Cervicalgia; M47.817 Spondylosis without myelopathy or radiculopathy, lumbosacral region; M54.9 Dorsalgia, unspecified; M96.1 Postlaminectomy syndrome, not elsewhere classified; M48.062 Spinal stenosis, lumbar region with neurogenic claudication
CPT/HCPCS: 95992; 97110; 97113; 97161; 97162; 97530

== ENCOUNTER 2024-08-01 15:58 | Emergency (ER) | payer MEDICAID, SELFPAY ==
[2024-08-01 16:10] VITALS: BP 134/73; PULSE 87; RESP 18; TEMP 36.1; O2SAT 97
--- NOTE | 2024-08-01 16:30 | ED.EXTPRO ---
HPI - Extremity Problem General Chief complaint: Extremity Problem,Nontraumatic Stated complaint: LT Foot Pain Time Seen by Provider: 08/01/24 16:30 Source: patient Mode of arrival: ambulatory Limitations: no limitations History of Present Illness HPI Narrative: 63-year-old diabetic female presented for complaint of pain to the left 2nd toe for about 2 days. Endorses pain is worse when she walks on it. Has been unable to visualize it herself. Not taking anything for pain. Denies drainage, redness or swelling of the toe. Related Data Home Medications ?Medication ?Instructions ?Recorded ?Confirmed ?Last Taken ?Type aspirin 81 mg tablet 81 mg PO DAILY 12/20/22 03/12/24 12/20/22 08:00 History simvastatin 20 mg tablet 20 mg PO DAILY 03/12/24 03/12/24 Unknown History Allergies Allergy/AdvReac Type Severity Reaction Status Date / Time codeine Allergy Mild ITCHING Verified 08/01/24 16:28 Sulfa (Sulfonamide Allergy Mild ITCHING Verified 08/01/24 16:28 Antibiotics) tetracycline Allergy Mild ITCHING Verified 08/01/24 16:28 Review of Systems Review of Systems: CONSTITUTIONAL: Denies body aches, fever, chills, or sweats. CARDIOVASCULAR: Denies chest pain, palpitations, or edema. RESPIRATORY: Denies cough or dyspnea. GASTROINTESTINAL: Denies abdominal pain, nausea, vomiting, or diarrhea. SKIN: denies redness or rash MUSCULOSKELETAL: reports left 2nd toe pain NEUROLOGIC: Denies numbness, tingling, or weakness. [facility] Past Medical History Medical History Stage 3b chronic kidney disease Hyperlipidemia Osteoarthritis Asthma Hypertension Insulin dependent diabetes mellitus Surgical History Surgical History History of cataract surgery History of total abdominal hysterectomy and bilateral salpingo-oophorectomy History of section X4 History of repair of rotator cuff History of cholecystectomy Family History Family History Other Unknown family medical history Social History Social History Smoking status: Never smoker Second hand tobacco smoke exposure: No Alcohol intake: never Substance use: never Do You Feel Safe in your Home?: Yes Lack of Transportation: No Lack of Food: Never True Current Housing: I Have Housing Concerned About Future Housing: No Difficulty Paying Gas/Electric Bills: No Difficulty Paying for Meds: No Currently Unemployed: No Education: High School Diploma/GED Difficulty w/ Childcare or Family Care: No Living arrangements: alone Occupation/Education: retired Gender identity (if verbalized by the patient): Female Sexual Orientation (if Verbalized by the Patient): Straight or Heterosexual Spiritual care concerns: No Comments At time of signature, I have reviewed and agree with nursing past medical, surgical, social and family history unless otherwise noted. Please see nursing chart for further information. There is no relevant family history pertinent to the presenting complaint Exam Narrative: GENERAL: Well-appearing ENT: Mucous membranes moist. Oropharynx without edema, erythema or lesions. CHEST: Clear to auscultation. HEART: Regular rate and rhythm. SKIN: Warm, dry. Plantar surface of Left 2nd toe with animal hair embedded, tender with palpation. No surrounding erythema or signs of infection. NEURO: Alert and oriented x3. Course Course Emergency Course: Patient is aware of diagnosis, understands and agrees to treatment plan. Anticipatory guidance given. Patient agrees to follow-up as directed and is aware of reasons to seek care at the emergency department. Portions of this record may have been created with voice recognition software Level of Care: Express Care Visit Vital Signs Vital signs: Vital Signs Temperature 97.0 F L 08/01/24 16:10 Pulse Rate 87 08/01/24 16:10 Respiratory Rate 18 08/01/24 16:10 Blood Pressure 134/73 08/01/24 16:10 Pulse Oximetry 97 08/01/24 16:10 Oxygen Delivery Room Air 08/01/24 16:10 Temperature 97.0 F L 08/01/24 16:10 Pulse Rate 87 08/01/24 16:10 Respiratory Rate 18 08/01/24 16:10 Blood Pressure 134/73 08/01/24 16:10 Pulse Oximetry 97 08/01/24 16:10 Oxygen Delivery Room Air 08/01/24 16:10 Reviewed Procedures Foreign Body Removal Foreign Body #1: Foreign Body Removal Date: 08/01/24 Site: left and foot (2nd toe plantar surface) Description of foreign body: other (animal hair) Technique: removal with forceps Confirmed by:: direct visualization and palpation Complications: none Neurovascular: normal distal pulse, normal capillary fill and distal light touch sensation intact Foreign Body Removal Narrative: Pt tolerate removal of the hair without difficulty, and reported immediate improvement in the pain. MDM - Extremity (Nontraumatic) MDM Narrative Medical decision making narrative: Discussed physical exam findings c/w soft tissue FB of left 2nd toe; animal hair. Reported immediate relief in pain after hair was removed. Patient mentioned she has a pet Green monkey, stating she knows this is illegal and has a [employer] license for it as her service animal. No s/s infection of the toe. However she has multiple scattered abrasions to bilateral forearms which she attributes to playing with the monkey. Advised supportive measures and signs/symptoms to go to the ER. Pt is appropriate for outpt treatment and f/u. Differential Diagnosis Differential diagnosis: Likely cellulitis and other (laceration, abrasion, contusion, abscess, ulceration) Discharge Plan Discharge Clinical Impression: Foreign body in soft tissue Patient Disposition: Home, Self-Care Condition: Stable Instructions: Antibiotic Form, Soft Tissue Foreign Body (ED) Additional Instructions: Keep the area clean and dry - cleanse with warm water and mild soap and allow to fully dry. Ok to apply neosporin to the site Keep it open to air (no bandages needed) Watch for worsening symptoms including pain, redness, swelling, streaking, pus/drainage, fever. Go to the ER with any of these symptoms or concerns. Follow up with primary care provider as needed. Patient Language: Swazi Prescriptions: No Action simvastatin 20 mg tablet 20 mg PO DAILY aspirin 81 mg Tablet 81 mg PO DAILY gabapentin 600 mg tablet 600 mg PO TID Qty: 270 1RF hydrochlorothiazide 25 mg tablet 25 mg PO DAILY Qty: 90 1RF albuterol sulfate 90 mcg/actuation HFA aerosol inhaler 2 puff INHALATION Q4H PRN (Reason: SOB) Qty: 8.5 5RF insulin glargine [Lantus Solostar U-100 Insulin] 100 unit/mL (3 mL) insulin pen See Rx Instructions .ROUTE .COMPLEX Qty: 15 5RF Dose Instruction: INJECT 25UNITS UNDER THE SKIN TWICE A DAY WITH MEALS FOR 30 DAYS Rx Instructions: INJECT 25UNITS UNDER THE SKIN TWICE A DAY WITH MEALS FOR 30 DAYS Zenpep 15,000-47,000 -63,000 unit capsule,delayed release(DR/EC) 2 cap PO TIDWM Qty: 180 3RF lisinopril 10 mg tablet See Rx Instructions .ROUTE .COMPLEX Qty: 90 1RF Dose Instruction: TAKE 1 TABLET BY MOUTH EVERY DAY Rx Instructions: TAKE 1 TABLET BY MOUTH EVERY DAY metformin 500 mg tablet 500 mg PO BIDWM Qty: 180 1RF insulin lispro [Humalog KwikPen Insulin] 100 unit/mL insulin pen 15 unit SUBCUT TIDWM Qty: 15 1RF tizanidine 4 mg tablet See Rx Instructions .ROUTE .COMPLEX Qty: 90 1RF Dose Instruction: TAKE 1 TABLET BY MOUTH THREE TIMES A DAY NEEDED FOR MUSCLE SPASMS Rx Instructions: TAKE 1 TABLET BY MOUTH THREE TIMES A DAY NEEDED FOR MUSCLE SPASMS tramadol 50 mg tablet 50 mg PO BID Qty: 10 1RF Follow-up/Referrals: PHYSICIAN,ADVANCED RESEARCH PROGRAMS DIRECTOR [Primary Care Provider] -
== END 2024-08-01 16:57 | disposition home or self-care (01) ==
PROVIDERS: Emergency Provider Nurse Practitioner Family
DX: S90.455A Superficial foreign body, left lesser toe(s), initial encounter (principal); W45.8XXA Other foreign body or object entering through skin, initial encounter; I12.9 Hypertensive chronic kidney disease with stage 1 through stage 4 chronic kidney disease, or unspecified chronic kidney disease; E11.22 Type 2 diabetes mellitus with diabetic chronic kidney disease; N18.32 Chronic kidney disease, stage 3b; E78.5 Hyperlipidemia, unspecified; J45.909 Unspecified asthma, uncomplicated; M19.90 Unspecified osteoarthritis, unspecified site; Z79.82 Long term (current) use of aspirin; Z79.4 Long term (current) use of insulin
CPT/HCPCS: 99212; G0463

== ENCOUNTER 2024-11-18 13:00 | Outpatient (CLI) | payer OTHER, SELFPAY ==
[2024-11-18 14:00] LABS: Alanine Aminotransferase 18 U/L (6-35); Albumin Level 4.2 g/dL (3.5-5.1); Alkaline Phosphatase 69 U/L (38-126); Anion Gap 8 mmol/L (4-12); Aspartate Amino Transferase 19 U/L (14-36); Bilirubin,Total 0.4 mg/dL (0.2-1.3); Blood Urea Nitrogen 17 mg/dL (7-17); Calcium 9.2 mg/dL (8.4-10.2); Carbon Dioxide 26 mmol/L (22-30); Chloride 103 mmol/L (98-107); Cholesterol 123 mg/dL (0-200); Estimated Glomerular Filt Rate 48; Glucose 151 mg/dL (65-110); HDL Direct 51 mg/dL; Potassium 5.1 mmol/L (3.4-5.0); Sodium 137 mmol/L (137-145); Triglycerides 82 mg/dL (<150)
[2024-11-18 14:01] LABS: Phosphorus 3.7 mg/dL (2.5-4.5)
[2024-11-18 14:02] LABS: Creatinine Urine 133.8 mg/dL; Total Protein Urine Random 6 mg/dL; Ur Ttl Prot Creatinine Ratio 0.04 mg/mg (0-0.20)
[2024-11-18 14:11] LABS: LDL Cholesterol Direct 40 mg/dL
[2024-11-18 14:23] LABS: Vitamin D 25 Hydroxy 30.6 ng/mL
--- OUTSIDE RECORDS SUMMARY | 2024-11-18 14:41 | XMS_ITS | Clinical Summary ---
Author Organization [facility] [employer] Address [address] [place] [address] Care Team Providers Care Cement Truck Loader Name Role Phone Elaine Herzog MD Primary Care Provider [phone] Source Comments [facility] [employer],non-owned Affiliates and Associated Physician Practices is amultiple site organization consisting of ambulatory clinics and hospital sitesin [place], [place], [place] and [place]. This disclosure is being madepursuant to the Care Everywhere program and may not contain all information available regarding this patient. Last updated 18.[facility] [employer] Social History Tobacco Use Types Packs/Day Years Used Date Smoking Tobacco: Never Assessed Comments Unknown Sex and Gender Information Value Date Recorded Sex Assigned at Not on file Legal Sex Female 5:42 PM CDT Gender Identity Not on file Sexual Orientation Not on file Last Filed Vital Signs Vital Sign Reading Time Taken Comments Blood Pressure 132/58 02/19/2020 8:34 AM CDT Pulse 78 02/19/2020 8:34 AM CDT Temperature 36.7 C (98 F) 02/19/2020 8:34 AM CDT Respiratory Rate - - Oxygen Saturation - - Inhaled Oxygen Concentration - - Weight - - Height - - Body Mass Index - - Plan of Treatment Health Maintenance Due Date Last Done Comments BONE DENSITY TESTING 1960 COLOGUARD (AGES 45-75) - COLON CA SCREENING [address] COLONOGRAPHY - COLON CA SCREENING 1959 FIT - COLON CA SCREENING 1959 FLEX SIG - COLON CA SCREENING 1959 MAMMOGRAM 1959 HIV SCREENING 1974 HEPATITIS C SCREENING 09/04/1977 DTAP/TDAP/TD VACCINES (1 - Tdap) 1978 DIABETES-STATIN 1999 PNEUMOCOCCAL VACCINE 50+ (1 of 1 - PCV) 2009 ZOSTER VACCINE (1 of 2) 2009 DIABETES-SERUM CREATININE 02/03/20212019, 02/04/2020, 02/04/2020, Additional history exists DIABETES-FOOT EXAM WITH MONOFILAMENT 09/06/2021 DIABETES-HGB A1C 09/06/2021 02/04/2020 COVID-19 VACCINE ( - season) 2024 DEPRESSION SCREENING 07/24/2024 DIABETES - URINE PROTEIN SCREENING 07/24/2024 02/04/2020 INFLUENZA VACCINE (Season Ended) 2025 COLONOSCOPY - COLON CA SCREENING 03/12/2030 03/12/2020, 03/12/2020 Colorectal Cancer Screening 03/12/2030 Respiratory Syncytial Virus (RSV) Vaccine Pt: or over 60 yrs (1 - 1-dose 75+ series) 2034 HEPATITIS B VACCINE Aged Out No longe r eligible based on patient's age to complete this topic HIB VACCINE Aged Out No longer eligi ble based on patient's age to complete this topic HPV VACCINE Aged Out No longer eligi ble based on patient's age to complete this topic MENINGOCOCCAL (Group B) VACCINE SHARED DECISION-MAKING Aged Out No longer eligible based on patient's age to complete this topic MENINGOCOCCAL GROUPS A/C/Y/W VACCINE Aged Out No longer eligible based on patient's age to complete this topic Medical Devices Implanted Type Area Holistic Nutritionist Device Identifier Shelf Expiration Date Model / Serial / Lot 5mm Clip Implanted:Qty: 1 on 02/04/2020 N/A: Other (See Description ) [facility] Ref: [id number] 10/16/2023 / / [id number] Description:Gallbladder Procedures Procedure Name Priority Date/Time Associated Diagnosis Comments COMPREHENSIVE METABOLIC PANEL Timed 02/04/2020 5:50 AM CDT HEMOGLOBIN A1C Timed 02/04/2020 5:50 AM CDT from Last 3 Months or Most Recently Relevant to Health Maintenance Results * (ABNORMAL) HEMOGLOBIN A1C (02/04/2020 5:50 AM CDT) Hemoglobin A1c 8.9(H) 4.0 - 6.0 % 02/04/2020 12:54 PM CDT [employer] Blood 02/04/2020 5:50 AM CDT 02/04/2020 6:07 AM CDT us Jose Frost MD LAB - CHEMISTRY ORDERABLES Final Result [facility] [employer] [place] [address] [address] * (ABNORMAL) COMPREHENSIVE METABOLIC PANEL (02/04/2020 5:50 AM CDT) Glucose 115(H) 70 - 110 mg/dL 02/04/2020 6:20 AM CDT [employer] BUN 21(H) 7 - 17 mg/dL 02/04/2020 6:20 AM CDT [employer] Creatinine 1.0 0.5 - 1.0 mg/dL 02/04/2020 6:20 AM CDT [employer] Calcium 9.1 8.4 - 10.2 mg/dL 02/04/2020 6:20 AM CDT [employer] Sodium 137 137 - 145 mmol/L 02/04/2020 6:20 AM CDT [employer] Potassium 4.5 3.4 - 5.0 mmol/L 02/04/2020 6:20 AM CDT [employer] Chloride 103 98 - 107 mmol/L 02/04/2020 6:20 AM CDT [employer] CO2 26 22 - 30 mmol/L 02/04/2020 6:20 AM CDT [employer] Bilirubin Total 0.3 0.2 - 1.3 mg/dL 02/04/2020 6:20 AM T [employer] Alkaline Phosphatase 69 38 - 126 U/L 02/04/2020 6:20 AM CDT [employer] Protein Total 6.9 6.3 - 8.2 g/dL 02/04/2020 6:20 AM CDT [employer] Albumin 3.9 3.5 - 5.0 g/dL 02/04/2020 6:20 AM CDT [employer] ALT 15 4 - 35 U/L 02/04/2020 6:20 AM CDT [employer] AST 16 14 - 36 U/L 02/04/2020 6:20 AM T [employer] Blood 02/04/2020 5:50 AM CDT 02/04/2020 6:07 AM CDT us Jose Frost MD LAB - CHEMISTRY ORDERABLES Final Result [facility] [address] [place] [address] from Last 3 Months or Most Recently Relevant to Health Maintenance Care Teams Cement Truck Loader Relationship Specialty Start Date End Date Elaine Herzog MD [address] [place] [address] [place] [id number] PCP - General 09/07/21
[2024-11-18 14:55] LABS: Hepatitis C Virus Antibody Negative (Negative)
[2024-11-18 15:28] LABS: Hemoglobin A1C 6.6 % (<5.7)
== END 2024-11-18 13:01 | disposition home or self-care (01) ==
PROVIDERS: PCP Nurse Practitioner Family; Referring Provider Nurse Practitioner Family; Visit Provider Internal Medicine Nephrology
DX: E11.40 Type 2 diabetes mellitus with diabetic neuropathy, unspecified (principal); Z11.59 Encounter for screening for other viral diseases; I12.9 Hypertensive chronic kidney disease with stage 1 through stage 4 chronic kidney disease, or unspecified chronic kidney disease; N18.31 Chronic kidney disease, stage 3a; E78.2 Mixed hyperlipidemia; E11.22 Type 2 diabetes mellitus with diabetic chronic kidney disease; N25.81 Secondary hyperparathyroidism of renal origin; Z79.4 Long term (current) use of insulin; E55.9 Vitamin D deficiency, unspecified
CPT/HCPCS: 36415; 80053; 80061; 82306; 82570; 83036; 83970; 84100; 84156; 86803

== ENCOUNTER 2025-05-20 14:12 | Outpatient (CLI) | payer OTHER, SELFPAY ==
[2025-05-20 15:42] LABS: Albumin Level 4.3 g/dL (3.5-5.1); Anion Gap 10 mmol/L (4-12); Blood Urea Nitrogen 28 mg/dL (7-17); Calcium 9.2 mg/dL (8.4-10.2); Carbon Dioxide 25 mmol/L (22-30); Chloride 102 mmol/L (98-107); Estimated Glomerular Filt Rate 38; Glucose 185 mg/dL (65-110); Potassium 4.9 mmol/L (3.4-5.0); Sodium 137 mmol/L (137-145)
[2025-05-20 15:46] LABS: Total Protein Urine Random 9 mg/dL; Ur Ttl Prot Creatinine Ratio 0.04 mg/mg (0-0.20)
--- OUTSIDE RECORDS SUMMARY | 2025-05-20 16:29 | XMS_ITS | Clinical Summary ---
Author Organization [facility] [employer] [facility] Address [address] [place] [address] Care Team Providers Care Rn Bariatric Name Role Phone Elaine Herzog MD Primary Care Provider Source Comments [facility],non-owned Affiliates and Associated Physician Practices is amultiple site organization consisting of ambulatory clinics and hospital sitesin [place], [place], [place] and [place]. This disclosure is being madepursuant to the Care Everywhere program and may not contain all information available regarding this patient. Last updated 18.[facility] Social History Tobacco Use Types Packs/Day Years [...] DENSITY TESTING 1959 COLOGUARD (AGES 45-75) - COL ON CA SCREENING 1959 CT COLONOGRAPHY - COLON CA SCREENING 1959 FIT - COLON CA SCREENING 1959 FLEX SIG - COLON CA SCREENING 1959 MAMMOGRAM 1959 HIV SCREENING 1974 HEPATITIS C SCREENING 09/04/1977 DTAP/TDAP/TD VACCINES (1 - Tdap) 1978 PAP SMEAR 1980 DIABETES-STATIN 1999 PNEUMOCOCCAL VACCINE 50+ (1 of 1 - PCV) 2009 ZOSTER VACCINE (1 of 2) 2009 DIABETES-SERUM CREATININE 02/03/20212019, 02/03/2020, 02/02/2020 DIABETES RETINOPATHY SCREENING 09/06/2021 DIABETES-FOOT EXAM WITH MONOFILAMENT 09/06/2021 DIABETES-HGB A1C 09/06/2021 02/04/2020 DEPRESSION SCREENING 07/24/2024 DIABETES - URINE PROTEIN SCREENING 07/24/2024 COVID-19 VACCINE (1 - 2023-2 5 season) 2025 INFLUENZA VACCINE (#1) 2025 COLON MONITORING 03/12/2030 03/12/2020 COLONOSCOPY - COLON CA SCREENING 03/12/2030 03/12/2020, [...] A/C/Y/W VACCINE Aged Out No longer eligible b ased on patient's age to complete this topic Medical Devices Implanted Type Area Before And After School Daycare Worker Device Identifier Shelf Expiration Date Model / Serial / Lot 5mm Clip Implanted:Qty: 1 on 02/04/2020 N/A: Other (See Description ) [employer] Ref: [id number] 10/16/2023 / / [id number] Description:Gallbladder Procedures Procedure Name Priority Date/Time Associated Diagnosis Comments COMPREHENSIVE METABOLIC PANEL Timed 02/04/2020 5:50 AM CDT HEMOGLOBIN A1C Timed 02/04/2020 5:50 AM CDT from Last 3 Months or Most Recently Relevant to Health Maintenance Results * (ABNORMAL) HEMOGLOBIN A1C (02/04/2020 5:50 AM CDT) Hemoglobin A1c 8.9(H) 4.0 - 6.0 % 02/04/2020 12:54 PM CDT [employer] Blood 02/04/2020 5:50 AM CDT 02/04/2020 6:07 AM CDT us Jose Frost MD LAB - CHEMISTRY ORDERABLES Final Result [facility] [employer] [address] [place] [address] * (ABNORMAL) COMPREHENSIVE METABOLIC PANEL (02/04/2020 5:50 AM CDT) Glucose 115(H) 70 - 110 mg/dL 02/04/2020 6:20 AM CDT [employer] BUN 21(H) 7 - 17 mg/dL 02/04/2020 6:20 AM T [employer] Creatinine 1.0 0.5 - 1.0 mg/dL 02/04/2020 6:20 AM CDT [employer] Calcium 9.1 8.4 - 10.2 mg/dL 02/04/2020 6:20 AM CDT [employer] Sodium 137 137 - 145 mmol/L 02/04/2020 6:20 AM CDT [employer] Potassium 4.5 3.4 - 5.0 mmol/L 02/04/2020 6:20 AM T [employer] Chloride 103 98 - 107 mmol/L 02/04/2020 6:20 AM T [employer] CO2 26 22 - 30 mmol/L 02/04/2020 6:20 AM T [employer] Bilirubin Total 0.3 0.2 - 1.3 mg/dL 02/04/2020 6:20 AM T [employer] Alkaline Phosphatase 69 38 - 126 U/L 02/04/2020 6:20 AM CDT [employer] Protein Total 6.9 6.3 - 8.2 g/dL 02/04/2020 6:20 AM T [employer] Albumin 3.9 3.5 - 5.0 g/dL 02/04/2020 6:20 AM T [employer] ALT 15 4 - 35 U/L 02/04/2020 6:20 AM CDT [employer] AST 16 14 - 36 U/L 02/04/2020 6:20 AM T [employer] Blood 02/04/2020 5:50 AM CDT 02/04/2020 6:07 AM CDT us Jose Frost MD LAB - CHEMISTRY ORDERABLES Final Result [facility] [address] [place] [address] from Last 3 Months or Most Recently Relevant to Health Maintenance Care Teams Rn Bariatric Relationship Specialty Start Date End Date Elaine Herzog MD [address] [place] [address] [place] [id number] PCP - General 09/07/21
== END 2025-05-20 14:13 | disposition home or self-care (01) ==
PROVIDERS: PCP Nurse Practitioner Family; Visit Provider Internal Medicine Nephrology
DX: I12.9 Hypertensive chronic kidney disease with stage 1 through stage 4 chronic kidney disease, or unspecified chronic kidney disease (principal); N18.31 Chronic kidney disease, stage 3a
CPT/HCPCS: 36415; 80069; 82570; 84156

== ENCOUNTER 2025-07-03 18:24 | Emergency (ER) | payer OTHER, SELFPAY ==
--- NOTE | ~2025-07-03 | XR_ITS ---
EXAMINATION: XR toe 1st LT min 2V DATE: 07/03/2025 18:56 INDICATION: Pain. No trauma. TECHNIQUE: 3 views of big toe. were obtained. COMPARISON: None. FINDINGS: No acute bony lesion. Nonspecific soft tissue swelling around the distal phalanx. No foreign objects or gas bubbles are seen. IMPRESSION: 1. Soft tissue swelling around the distal phalanx of big toe. Reviewed, dictated and finalized at location T. F TECHNICIAN X RAY
--- NOTE | 2025-07-03 18:27 | ED_ITS ---
HPI - Extremity Injury (Lower) General Chief Complaint: Wound/Laceration Stated Complaint: Left Foot Big Toe Pain Time Seen by Provider: 07/03/25 18:27 Source: patient Mode of arrival: ambulatory Limitations: no limitations History of Present Illness HPI Narrative: Patient is a 64-year-old female who presents with left big toe bruising and pressure, neuropathy and does not have pain. Patient denies any injury but she is a diabetic. Patient called PCP and was told to come to Urgent Care since she can't get in until Monday. 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 Denies any drainage from toe or red streaking up foot. Denies any fever, chills, nausea, vomiting, diarrhea. Related Data Home Medications ?Medication ?Instructions ?Recorded ?Confirmed ?Last Taken ?Type aspirin 81 mg tablet 81 mg PO DAILY 12/20/22 12/09/1712/20/22 08:00 History Allergies Allergy/AdvReac Type Severity Reaction Status Date / Time codeine Allergy Mild ITCHING Verified 07/03/25 18:32 Sulfa (Sulfonamide Allergy Mild ITCHING Verified 07/03/25 18:32 Antibiotics) tetracycline Allergy Mild ITCHING Verified 07/03/25 18:32 Review of Systems 2 Review of Systems: All systems reviewed & are unremarkable except as noted in HPI and below Constitutional: Constitutional: Denies body ache(s), Denies chills, Denies fatigue, Denies fever(s), Denies headache(s), Denies malaise and Denies weakness Eyes: Eyes: Denies blurry vision, Denies irritation and Denies loss of vision ENT: Denies otalgia, Denies headache(s), Denies nasal discharge, Denies sinus pain and Denies sore throat Cardiovascular: Cardiovascular: Denies chest pain, Denies irregular heart rhythm and Denies dyspnea Respiratory: Respiratory: Denies dyspnea Gastrointestinal: Gastrointestinal: Denies abdominal pain, Denies melena, Denies hematochezia, Denies diarrhea, Denies nausea and Denies vomiting Musculoskeletal: Musculoskeletal: Denies back pain, Denies myalgias and Denies arthralgias Integumentary/Breasts: Skin/Breast: Denies pruritus, Denies rash and Reports sores Neurologic: Denies headache(s), Denies loss of vision and Denies weakness Psychiatric: Psychiatric: Reports no additional psychiatric complaints Endocrine: Endocrine: Denies fatigue PMFSH Past Medical History Medical History Morbid obesity Mixed hyperlipidemia Type 2 diabetes mellitus with diabetic neuropathy, with long-term current use of insulin Stage 3b chronic kidney disease Osteoarthritis Asthma Surgical History Surgical History History of cataract surgery History of total abdominal hysterectomy and bilateral salpingo-oophorectomy History of section X4 History of repair of rotator cuff History of cholecystectomy Family History Family History Other Unknown family medical history Social History Social History Smoking status: Never smoker Second hand tobacco smoke exposure: No Alcohol intake: never Substance use: never Lack of Transportation: No Lack of Food: Never True Current Housing: I Have Housing Concerned About Future Housing: No Difficulty Paying Gas/Electric Bills: No Difficulty Paying for Meds: No Currently Unemployed: No Education: High School Diploma/GED Difficulty w/ Childcare or Family Care: No Living arrangements: alone Occupation/Education: retired Gender identity (if verbalized by the patient): Female Sexual Orientation (if Verbalized by the Patient): Straight or Heterosexual Spiritual care concerns: No Comments At time of signature, agree with nursing past medical, surgical, social and family history. There is no relevant family history pertinent to the presenting complaint. Exam 2 Const: General: cooperative, healthy appearing, comfortable, no acute distress and well nourished Nutritional Appearance: well nourished O rientation/consciousness: patient oriented x3 Limitations: no limitations HENMT: Head: normal to inspection, normocephalic and atraumatic Ears: h earing grossly normal bilaterally and external ears normal Face/Nose/Sinus: N ormal external nose present, normal facial exam and face symmetric Face and sinus: normal facial exam and face symmetric Mouth: Yes lip normal Eyes: General: appearance normal, both eyes and all related structures A lignment and Position: alignment normal and position normal Periorbital: p eriorbital findings normal Eyelids: eyelids normal Pupils: Equal, round and reactive pupils present EOM: EOMs intact bilaterally Neck: Neck: normal visual inspection, full ROM and supple Chest: Chest palpation & inspection: normal inspection of the chest Resp: Effort & Inspection: normal respiratory effort and able to speak in complete sentences Auscultation: clear to auscultation bilaterally Cardio: Rate: regular rate Rhythm: regular rhythm Heart sounds: S1 normal heart sound present and S2 normal heart sound present GI: Inspection: normal to inspection Skin: General skin exam: normal color and no rashes or lesions noted Neuro: General: patient oriented x3 and moves all extremities Cranial nerves: Yes Equal, round and reactive pupils present Speech: normal speech Gait exam (Neuro): Normal gait present Extrem: General: normal to inspection, full ROM and no edema Ankle/foot/toe images: 1. Significant swelling, bruising and discoloration. Mild erythema. No active drainage. See pictures Other: Psych: Appearance: grossly normal and well kempt Mental Status: mental status grossly normal Speech and movement: Normal speech and movement present Affect: normal affect Attitude: cooperative Thought process: Normal thought process present Course Course Emergency Course: Patient is aware of diagnosis, understands and agrees to treatment plan. Anticipatory guidance given. Patient agrees to follow-up as directed and is aware of reasons to seek care at the emergency department. Portions of this record may have been created with voice recognition software Level of Care: Express Care Visit Vital Signs Vital signs: Vital Signs Temperature 36.4 C 07/03/25 18:35 Pulse Rate 77 07/03/25 18:35 Respiratory Rate 20 07/03/25 18:35 Blood Pressure 105/57 L 07/03/25 18:35 Pulse Oximetry 99 07/03/25 18:35 Oxygen Delivery Room Air 07/03/25 18:35 Temperature 36.4 C 07/03/25 18:35 Pulse Rate 77 07/03/25 18:35 Respiratory Rate 20 07/03/25 18:35 Blood Pressure 105/57 L 07/03/25 18:35 Pulse Oximetry 99 07/03/25 18:35 Oxygen Delivery Room Air 07/03/25 18:35 [facility] MDM Narrative Medical decision making narrative: x-ray toe for concern for necrosis or osteomyelitis, patient is a diabetic. Will send in antibiotics and referral to Podiatry Pt well hydrated appearing, in no respiratory distress, hemodynamically stable. Recommend supportive care. The patient is stable at time of discharge the clinical impression was discussed and the patient was given the opportunity to ask questions, which were addressed as completely as possible given the information available at present. Anticipatory guidance and return to care precautions were discussed and the importance of primary care follow-up was stressed and encouraged. The patient voiced understanding of the plan, indications to return, and the need for follow-up. Exam findings show no acute concerns or changes Patient is appropriate for outpatient treatment and follow-up. Differential Diagnosis Differential Diagnosis: Differential diagnostic considerations for skin/abscess/foreign body issues include abscess of skin or subcutaneous tissue, viral exanthem, dermatophytosis, urticaria, herpes zoster, allergic reaction to drug, cellulitis, eczema, insect bites, impetigo, contact dermatitis, vasculitis. Medical Records I have reviewed the following patient records and this information was taken into consideration when formulating the assessment and plan.: previous clinic visits Imaging Data Radiologist's impression: EXAMINATION: XR toe 1st LT min 2V DATE: 07/03/2025 18:56 INDICATION: Pain. No trauma. TECHNIQUE: 3 views of big toe. were obtained. COMPARISON: None. FINDINGS: No acute bony lesion. Nonspecific soft tissue swelling around the distal phalanx. No foreign objects or gas bubbles are seen. IMPRESSION: 1. Soft tissue swelling around the distal phalanx of big toe. Reviewed, dictated and finalized at location T. ENTER INSPECTOR Discharge Plan Discharge Clinical Impression: Toe infection Patient Disposition: Home Condition: Stable Instructions: Wound Infection (DC) Additional Instructions: 1) Please follow-up with podiatry 2) If you have any worsening of symptoms or any other urgent concerns please go to the ER. 3) Please take medications as prescribed and continue taking your home medications as usual. 4) Please read and follow information included in discharge instructions. Patient Language: Tunisian Prescriptions: New amoxicillin-pot clavulanate 875-125 mg tablet 1 tablet PO Q12H 10 Days Qty: 20 0RF No Action (DME) [employer] [place] 3 [place] Misc See Rx Instructions .Route Qty: 1 0RF Rx Instructions: four times daily Zenpep 15,000-47,000 -63,000 unit capsule,delayed release(DR/EC) 2 cap PO TIDWM Qty: 180 3RF insulin glargine [Lantus Solostar U-100 Insulin] 100 unit/mL (3 mL) insulin pen See Rx Instructions .ROUTE .COMPLEX Qty: 15 5RF Dose Instruction: INJECT 25UNITS UNDER THE SKIN TWICE A DAY WITH MEALS FOR 30 DAYS Rx Instructions: INJECT 25UNITS UNDER THE SKIN TWICE A DAY WITH MEALS FOR 30 DAYS trazodone 50 mg tablet 50 mg PO QHS PRN (Reason: sleep) Qty: 90 0RF dapagliflozin propanediol [Farxiga] 10 mg tablet 10 mg PO DAILY Qty: 90 3RF dulaglutide 0.75 mg/0.5 mL pen injector 0.75 mg subcut WEEKLY Qty: 1 0RF aspirin 81 mg Tablet 81 mg PO DAILY (DME) [employer] 3 Sensor Device See Rx Instructions .Route Qty: 6 3RF Rx Instructions: four times daily simvastatin 20 mg tablet See Rx Instructions .ROUTE .COMPLEX Qty: 90 1RF Dose Instruction: TAKE 1 TABLET BY MOUTH EVERY DAY Rx Instructions: TAKE 1 TABLET BY MOUTH EVERY DAY hydrochlorothiazide 25 mg tablet See Rx Instructions .ROUTE .COMPLEX Qty: 90 1RF Dose Instruction: TAKE 1 TABLET BY MOUTH EVERY DAY Rx Instructions: TAKE 1 TABLET BY MOUTH EVERY DAY lisinopril 10 mg tablet See Rx Instructions .ROUTE .COMPLEX Qty: 90 1RF Dose Instruction: TAKE 1 TABLET BY MOUTH EVERY DAY Rx Instructions: TAKE 1 TABLET BY MOUTH EVERY DAY amlodipine 5 mg tablet 5 mg PO DAILY Qty: 90 1RF solifenacin 10 mg tablet 10 mg PO DAILY Qty: 90 1RF metformin 500 mg tablet See Rx Instructions .ROUTE .COMPLEX Qty: 180 1RF Dose Instruction: TAKE 1 TABLET BY MOUTH TWICE A DAY WITH MEALS Rx Instructions: TAKE 1 TABLET BY MOUTH TWICE A DAY WITH MEALS ropinirole 0.25 mg tablet 0.25 mg PO QHS Qty: 30 5RF (DME) [employer] 3 Plus Sensor Device See Rx Instructions .Route Qty: 6 3RF Rx Instructions: As directed tramadol 50 mg tablet 50 mg PO BID Qty: 10 1RF albuterol sulfate 90 mcg/actuation HFA aerosol inhaler See Rx Instructions .ROUTE .COMPLEX Qty: 8.5 0RF Dose Instruction: INHALE 2 PUFFS BY MOUTH EVERY 4 HOURS NEEDED FOR SHORTNESS OF BREATH Rx Instructions: INHALE 2 PUFFS BY MOUTH EVERY 4 HOURS NEEDED FOR SHORTNESS OF BREATH tizanidine 4 mg tablet See Rx Instructions .ROUTE .COMPLEX Qty: 90 1RF Dose Instruction: TAKE 1 TABLET BY MOUTH THREE TIMES A DAY NEEDED FOR MUSCLE SPASMS Rx Instructions: TAKE 1 TABLET BY MOUTH THREE TIMES A DAY NEEDED FOR MUSCLE SPASMS Follow-up/Referrals: Christopher Mead DPM [Physician, Podiatry] - 3 Days Referral Note: diabetic foot wound Siomara Hannah APRN [Primary Care Provider, Family Practice] - 3 Days Time of Disposition: 19:06
[2025-07-03 18:35] VITALS: BP 105/57; PULSE 77; RESP 20; TEMP 36.4; O2SAT 99
== END 2025-07-03 19:15 | disposition home or self-care (01) ==
PROVIDERS: Emergency Provider Nurse Practitioner Family; PCP Nurse Practitioner Family
DX: L08.9 Local infection of the skin and subcutaneous tissue, unspecified (principal); E11.22 Type 2 diabetes mellitus with diabetic chronic kidney disease; N18.32 Chronic kidney disease, stage 3b; E11.42 Type 2 diabetes mellitus with diabetic polyneuropathy; Z79.4 Long term (current) use of insulin; Z79.84 Long term (current) use of oral hypoglycemic drugs; E78.2 Mixed hyperlipidemia; M19.90 Unspecified osteoarthritis, unspecified site; J45.909 Unspecified asthma, uncomplicated; E66.01 Morbid (severe) obesity due to excess calories; Z68.39 Body mass index [BMI] 39.0-39.9, adult; Z79.82 Long term (current) use of aspirin
CPT/HCPCS: 73660; 99213; G0463